=== PATIENT | female | born 1990 | race Caucasian/White ===

== ENCOUNTER 2016-10-23 21:03 | Emergency (ER) | payer BC, OTHER ==
[2016-10-23 21:11] VITALS: BP 130/70; PULSE 98; RESP 20; TEMP 99.3
[2016-10-23] MEDS ORDERED: ACETAMINOPHEN TAB 500 MG TAB PO STA (21:17)
[2016-10-23] MEDS ORDERED: KETOROLAC 30 MG/ML 1 ML VIAL IM STA (21:30)
[2016-10-23] MEDS ORDERED: ONDANSETRON 4 MG ODT STARTER PACK 2 TAB BTL PO STA (21:31)
--- NOTE | 2016-10-23 21:46 | ED ---
Headache HPI - General Chief Complaint: Headache Stated Complaint: Headache Time Seen by Provider: 10/23/16 21:16 Source: RN notes reviewed Mode of arrival: ambulatory Limitations: no limitations - History of Present Illness Initial Comments: Patient is a 26-year-old female with chief complaint of sore throat and sinus pressure and congestion for approximately 3 days. She also states that on she had a migraine headache that is continue to persist. Patient states that she's been taking Motrin but denies taking any medication in the past 24 hours for headache. Patient states that she did have a slight cough but denies any mucus production. Patient reports that her headache is currently a 4 out of 10. Patient denies any recent , chills, shortness of breath , chest pain, back pain, abdominal pain, nausea vomiting, numbness or tingling, dysuria or hematuria, constipation or diarrhea, headaches or visual changes, or any other current symptoms. - Related Data Previous Rx's Medication Instructions Recorded Azithromycin [Zithromax Z-pack] 250 mg PO DIRECTED #6 tab 10/23/16 Butalb/Acetaminophen/Caffeine 1 - 2 cap PO Q4HR #10 cap 10/23/16 [Fioricet 50-300-40 mg Capsule] Allergies Allergy/AdvReac Type Severity Reaction Status Date / Time Penicillins Allergy Rash/Hives Verified 10/23/16 21:11 Review of Systems ROS Statement: Those systems with pertinent positive or pertinent negative responses have been documented in the HPI. ROS Other: All systems not noted in ROS Statement are negative. Past Medical History Additional Past Medical History / Comment(s): diverticulitis History of Any Multi-Drug Resistant Organisms: None Reported, MRSA Date of last positivie culture/infection: 2009 MDRO Source:: lower left leg Past Surgical History: Appendectomy, Cholecystectomy Past Psychological History: No Psychological Hx Reported Smoking Status: Never smoker Past Alcohol Use History: Occasional Past Drug Use History: None Reported General Exam - General Exam Comments Initial Comments: Pleasant 26-year-old female. No acute distress. Limitations: no limitations General appearance: alert, in no apparent distress Head exam: Present: atraumatic, normocephalic, normal inspection Eye exam: Present: normal appearance, PERRL, EOMI. Absent: scleral icterus, conjunctival injection, periorbital swelling ENT exam: Present: normal exam, normal oropharynx, mucous membranes moist. Absent: TM's normal bilaterally Neck exam: Present: normal inspection, tenderness (Tender anterior cervical lymphadenopathy.). Absent: meningismus, lymphadenopathy Respiratory exam: Present: normal lung sounds bilaterally. Absent: respiratory distress, wheezes, rales, rhonchi, stridor Cardiovascular Exam: Present: regular rate, normal rhythm, normal heart sounds. Absent: systolic murmur, diastolic murmur, rubs, gallop, clicks GI/Abdominal exam: Present: soft, normal bowel sounds. Absent: distended, tenderness, guarding, rebound, rigid Extremities exam: Present: normal inspection, full ROM, normal capillary refill. Absent: tenderness, pedal edema, joint swelling, calf tenderness Back exam: Present: normal inspection Neurological exam: Present: alert, oriented X3, CN II-XII intact Psychiatric exam: Present: normal affect, normal mood Skin exam: Present: warm, dry, intact, normal color. Absent: rash Course Vital Signs 10/23/16 21:09 Temperature 99.3 F Pulse Rate 98 Respiratory 20 Rate Blood Pressure 130/70 O2 Sat by Pulse 99 Oximetry Medical Decision Making - Medical Decision Making Patient is a 26-year-old female with chief complaint of sore throat and sinus pressure and congestion for approximately 3 days. She also states that on she had a migraine headache that is continue to persist. Patient states that she's been taking Motrin but denies taking any medication in the past 24 hours for headache. Patient states that she did have a slight cough but denies any mucus production. Patient reports that her headache is currently a 4 out of 10. Patient refuses an IV at this time. I discussed we can do IM Toradol and nausea medication. Patient agrees to that. Influenza and rapid strep are negative. Patient does have significant anterior cervical adenopathy and erythematous oropharynx. I will treat the patient with azithromycin at this time for tonsillitis.. I discussed that she needs to follow-up with primary care provider. Patient reports that her headache is diminished at this time. No red the patient a short prescription for Fioricet if she does have further headaches. Return parameters were discussed. - Lab Data Lab Results 10/23/16 10/23/16 Range/Units 21:30 21:30 Influenza Type A RNA Not Detected (Not Detectd) Influenza Type B (PCR) Not Detected (Not Detectd) Group A Strep Rapid Negative (Negative) Disposition Clinical Impression: Sinusitis, Migraine, Acute infective tonsillitis Disposition: HOME SELF-CARE Condition: Good Instructions: Acute Headache (ED) Additional Instructions: Follow-up with primary care provider in the next 2-3 days of symptoms continue to persist. Completely anabiotic prescription. Return to emergency department if any alarming signs or symptoms occur. Prescriptions: Azithromycin [Zithromax Z-pack] 250 mg PO DIRECTED #6 tab Butalb/Acetaminophen/Caffeine [Fioricet 50-300-40 mg Capsule] 1 - 2 cap PO Q4HR #10 cap Referrals: Sabina Murray MD [Primary Care Provider] - 1-2 days Time of Disposition: 22:43
== END 2016-10-23 22:50 | disposition home or self-care (01) ==
LOC: EC 21:03
DX: J32.9 Chronic sinusitis, unspecified (principal); G43.909 Migraine, unspecified, not intractable, without status migrainosus; J03.90 Acute tonsillitis, unspecified; Z88.0 Allergy status to penicillin
CPT/HCPCS: 99284; 96372; 87081; 87430; 87502; J1885; S0119

== ENCOUNTER 2017-03-06 16:19 | Emergency (ER) | payer OTHER, BC ==
[2017-03-06 16:38] VITALS: RESP 20
--- NOTE | 2017-03-06 16:54 | ED ---
Back Pain HPI - General Chief Complaint: Back Pain/Injury Stated Complaint: Back Pain Time Seen by Provider: 03/06/17 16:46 Source: patient Limitations: no limitations - History of Present Illness Initial Comments: 26-year-old female presents with low back pain that occurred earlier today. Patient states she was just twisting when her leg give out and she fell. Patient having extreme pain in her low back that slightly more to the right and radiating down both legs. Patient states she can't straighten up all the way. Patient states she can hardly ambulate. Patient denies any bowel bladder incontinence or saddle numbness. MD Complaint: back pain, fall - Related Data Previous Rx's Medication Instructions Recorded Azithromycin [Zithromax Z-pack] 250 mg PO DIRECTED #6 tab 10/23/16 Butalb/Acetaminophen/Caffeine 1 - 2 cap PO Q4HR #10 cap 10/23/16 [Fioricet 50-300-40 mg Capsule] Cyclobenzaprine [Flexeril] 10 mg PO TID #20 tab 03/06/17 Hydrocodone/Acetaminophen [[place]ion 1 tab PO Q4HR PRN #12 tab 03/06/17 5-325] methylPREDNISolone Dose Pack 4 mg PO DIRECTED #21 package 03/06/17 [Medrol Dose Pack] Allergies Allergy/AdvReac Type Severity Reaction Status Date / Time Penicillins Allergy Rash/Hives Verified 03/06/17 16:38 Review of Systems ROS Statement: Those systems with pertinent positive or pertinent negative responses have been documented in the HPI. ROS Other: All systems not noted in ROS Statement are negative. Endocrine: Denies: fatigue Gastrointestinal: Denies: abdominal pain Musculoskeletal: Reports: back pain Skin: Denies: rash Past Medical History Additional Past Medical History / Comment(s): diverticulitis History of Any Multi-Drug Resistant Organisms: MRSA Date of last positivie culture/infection: 2009 MDRO Source:: lower left leg Past Surgical History: Appendectomy, Cholecystectomy Past Psychological History: No Psychological Hx Reported Smoking Status: Never smoker Past Alcohol Use History: Occasional Past Drug Use History: None Reported General Exam Limitations: no limitations General appearance: alert, in no apparent distress, in distress Head exam: Present: atraumatic, normocephalic, normal inspection Neck exam: Present: normal inspection. Absent: tenderness, meningismus, lymphadenopathy Respiratory exam: Present: normal lung sounds bilaterally. Absent: respiratory distress, wheezes, rales, rhonchi, stridor Cardiovascular Exam: Present: regular rate, normal rhythm, normal heart sounds. Absent: systolic murmur, diastolic murmur, rubs, gallop, clicks Back exam: Present: normal inspection, tenderness (Bilateral lower back tenderness no deformity swelling or bruising), muscle spasm, paraspinal tenderness, vertebral tenderness. Absent: full ROM (Her limited range of motion and exam due to patient's pain level she could not lay on the bed presents in a flexion position) Course Vital Signs 03/06/17 16:36 Temperature 98.4 F Pulse Rate 100 Respiratory 20 Rate Blood Pressure 124/60 O2 Sat by Pulse 99 Oximetry Medical Decision Making - Medical Decision Making Reviewed x-ray negative for any acute changes positive straightening of the lumbar spine hobble due to muscle spasm patient aware. Disposition Clinical Impression: Strain of lumbar region Disposition: HOME SELF-CARE Condition: Good Instructions: Acute Low Back Pain (ED) Prescriptions: Hydrocodone/Acetaminophen [Champion 5-325] 1 tab PO Q4HR PRN #12 tab PRN Reason: Pain Cyclobenzaprine [Flexeril] 10 mg PO TID #20 tab methylPREDNISolone Dose Pack [Medrol Dose Pack] 4 mg PO DIRECTED #21 package Referrals: Sabina Murray MD [Primary Care Provider] - 1-2 days Time of Disposition: 17:47
[2017-03-06] MEDS ORDERED: methylPREDNISolone SOD SUCCI 125 MG/2 ML VIAL IM ONE (17:41)
[2017-03-06] MEDS ORDERED: ORPHENADRINE 30 MG/ML 2 ML VIAL IM STA (17:41)
[2017-03-06 17:58] VITALS: BP 122/68; PULSE 97; TEMP 98
--- NOTE | 2017-03-06 17:58 | XR ---
EXAMINATION TYPE: XR lumbar spine 2 or 3V DATE OF EXAM: 03/06/2017 COMPARISON: NONE HISTORY: Injury and pain TECHNIQUE: 3 views FINDINGS: Lumbar vertebra have normal alignment. Posterior elements are intact. Sacroiliac joints andrew ear normal. IMPRESSION: Negative lumbar spine exam.
== END 2017-03-06 17:57 | disposition home or self-care (01) ==
LOC: EC 16:19
DX: S39.012A Strain of muscle, fascia and tendon of lower back, initial encounter (principal); Z88.0 Allergy status to penicillin; X50.1XXA Overexertion from prolonged static or awkward postures, initial encounter
CPT/HCPCS: 72100; 99283; 96372 ×2; J2360; J2930

== ENCOUNTER 2018-01-21 14:45 | Emergency (ER) | payer BC ==
[2018-01-21 15:34] VITALS: RESP 16
--- NOTE | 2018-01-21 16:32 | ED ---
General Adult HPI - General Chief complaint: Nausea/Vomiting/Diarrhea Stated complaint: N & V Time Seen by Provider: 01/21/18 16:10 Source: patient Mode of arrival: ambulatory Limitations: no limitations - History of Present Illness Initial comments: 77 years old female had I&D done at her doctor's office on Tuesday she was started on a Bactrim she had a Bactrim for last 4 days is causing her excruciating nausea and vomiting she said this is the worst nausea she ever had she denies any abdominal pain no fever no chills no frequency urgency dysuria. Past medical history is quite unremarkable past surgical history is significant for being status post cholecystectomy and appendectomy. She had I&D done for a localized infection she said that's better - Related Data Previous Rx's Medication Instructions Recorded Butalb/Acetaminophen/Caffeine 1 - 2 cap PO Q4HR #10 cap 10/23/16 [Fioricet 50-300-40 mg Capsule] Cyclobenzaprine [Flexeril] 10 mg PO TID #20 tab 03/06/17 Hydrocodone/Acetaminophen [[place] 1 tab PO Q4HR PRN #12 tab 03/06/17 5-325] methylPREDNISolone Dose Pack 4 mg PO DIRECTED #21 package 03/06/17 [Medrol Dose Pack] Clindamycin [Cleocin] 300 mg PO Q6H #28 capsule 01/21/18 Metoclopramide [Reglan] 10 mg PO Q8H PRN #12 tab 01/21/18 Allergies Allergy/AdvReac Type Severity Reaction Status Date / Time Penicillins Allergy Rash/Hives Verified 01/21/18 15:34 Review of Systems ROS Statement: Those systems with pertinent positive or pertinent negative responses have been documented in the HPI. ROS Other: All systems not noted in ROS Statement are negative. Past Medical History Past Medical History: No Reported History Additional Past Medical History / Comment(s): diverticulitis History of Any Multi-Drug Resistant Organisms: MRSA Date of last positivie culture/infection: 2009 MDRO Source:: lower left leg Past Surgical History: Appendectomy, Cholecystectomy Past Psychological History: No Psychological Hx Reported Smoking Status: Never smoker Past Alcohol Use History: Occasional Past Drug Use History: None Reported General Exam - General Exam Comments Initial Comments: General: The patient is awake and alert, in no distress, and does not appear acutely ill. Skin: Skin is warm and dry and no rashes or lesions are noted. Eye: Pupils are equal, round and reactive to light, extra-ocular movements are intact; there is normal conjunctiva bilaterally. Ears, nose, mouth and throat: There are moist mucous membranes and no oral lesions. Neck: The neck is supple, there is no tenderness or JVD. Cardiovascular: There is a regular rate and rhythm. No murmur, rub or gallop is appreciated. Respiratory: To auscultation bilateral, no wheezing no rhonchi no distress respiratory ashton noticed Gastrointestinal: Soft, non-distended, non-tender abdomen without masses or organomegaly noted. There is no rebound or guarding present. Bowel sounds are unremarkable. Back: There is no tenderness to palpation in the midline. There is no obvious deformity. Musculoskeletal: Normal ROM, no tenderness, There is no pedal edema. There is no calf tenderness or swelling. No cords were appreciated. Neurological: CN II-XII intact, Cranial nerves III through XII are intact. There are no obvious motor or sensory deficits. Coordination appears grossly intact. Speech is normal. Psychiatric: Cooperative, appropriate mood & affect, normal judgment. Limitations: no limitations Course Vital Signs 01/21/18 15:27 Temperature 98.5 F Pulse Rate 75 Respiratory 16 Rate Blood Pressure 125/77 O2 Sat by Pulse 100 Oximetry Disposition Clinical Impression: Drug-induced nausea and vomiting Disposition: HOME SELF-CARE Condition: Good Instructions: Acute Nausea and Vomiting (ED) Additional Instructions: Patient was advised to stay in touch with family doctor we might need to change the antibiotic based on the culture and sensitivity I don't have any report on the culture and sensitivity on in our system since this was done in her doctor' s office Prescriptions: Clindamycin [Cleocin] 300 mg PO Q6H #28 capsule Metoclopramide [Reglan] 10 mg PO Q8H PRN #12 tab PRN Reason: Nausea Is patient prescribed a controlled substance at d/c from ED?: No Referrals: Sabina Murray MD [Primary Care Provider] - 1-2 days
[2018-01-21] MEDS ORDERED: ONDANSETRON ODT 4 MG TAB PO STA (16:53)
[2018-01-21] MEDS ORDERED: METOCLOPRAMIDE 5 MG/ML 2 ML VIAL IM PRN (18:00)
[2018-01-21] MEDS ORDERED: SODIUM CHLORIDE 0.9% 1,000 ML IV STA (18:04)
[2018-01-21] MEDS ORDERED: ONDANSETRON 4 MG/2 ML VIAL IVP STA (18:04)
[2018-01-21] MEDS ORDERED: FAMOTIDINE 20 MG/2 ML VIAL IV STA (18:06)
[2018-01-21] MEDS ORDERED: MORPHINE SULFATE 2 MG/ML SYRINGE IVP STA (18:06)
[2018-01-21 19:04] LABS: Basophils % (A) 0 %; Eosinophils # (A) 0.1 k/uL (0-0.7); Eosinophils % (A) 1 %; HCT 41.9 % (34.0-46.0); HGB 14.1 gm/dL (11.4-16.0); Lymphocytes # (A) 2.3 k/uL (1.0-4.8); Lymphocytes % (A) 26 %; MCH 28.4 pg (25.0-35.0); MCHC 33.7 g/dL (31.0-37.0); MCV 84.4 fL (80.0-100.0); Monocytes # (A) 0.4 k/uL (0-1.0); Monocytes % (A) 4 %; Neutrophils # (A) 6.1 k/uL (1.3-7.7); Neutrophils % (A) 68 %; Platelet Count 172 k/uL (150-450); RBC 4.97 m/uL (3.80-5.40); RDW 13.7 % (11.5-15.5); WBC 9.1 k/uL (3.8-10.6)
[2018-01-21 19:05] LABS: Appearance,Urine Clear (Clear); Bilirubin,Urine Negative (Negative); Blood,Urine Negative (Negative); Color,Urine Light Yellow; Glucose,Urine (UA) Negative (Negative); Ketones,Urine Negative (Negative); Leukocyte Esterase,Urine Negative (Negative); Nitrite,Urine Negative (Negative); Protein,Urine Negative (Negative); Specific Gravity,Urine 1.009 (1.001-1.035); Urobilinogen,Urine <2.0 mg/dL (<2.0)
[2018-01-21 19:19] VITALS: BP 120/64; PULSE 67; TEMP 98.1
[2018-01-21 19:21] LABS: ALT 48 U/L (9-52); AST 36 U/L (14-36); Albumin 4.1 g/dL (3.5-5.0); Alkaline Phosphatase 89 U/L (38-126); Amylase 58 U/L (30-110); Anion Gap 12 mmol/L; Blood Urea Nitrogen 8 mg/dL (7-17); Calcium 9.6 mg/dL (8.4-10.2); Carbon Dioxide 22 mmol/L (22-30); Chloride 104 mmol/L (98-107); Glucose 90 mg/dL (74-99); Lipase 64 U/L (23-300); Potassium 4.5 mmol/L (3.5-5.1); Sodium 138 mmol/L (137-145); Total Bilirubin 0.2 mg/dL (0.2-1.3); Total Protein 6.9 g/dL (6.3-8.2)
== END 2018-01-21 19:45 | disposition home or self-care (01) ==
LOC: EC 14:45
DX: R11.2 Nausea with vomiting, unspecified (principal); T37.0X5A Adverse effect of sulfonamides, initial encounter; Z87.19 Personal history of other diseases of the digestive system; Z86.14 Personal history of Methicillin resistant Staphylococcus aureus infection; Z90.49 Acquired absence of other specified parts of digestive tract; Z88.0 Allergy status to penicillin
CPT/HCPCS: 36415; 80053; 82150; 83690; 85025; 81003; 81025; 99284; 96374; 96375; 96361; J2765

== ENCOUNTER 2020-05-26 07:39 | Inpatient (IN) | payer BC ==
[2020-05-26] MEDS ORDERED: ACETAMINOPHEN TAB 500 MG TAB PO PRN (08:13)
[2020-05-26] MEDS ORDERED: ALBUTEROL HFA INHALER INHALATION STA (08:13)
[2020-05-26] MEDS ORDERED: ACETAMINOPHEN TAB 500 MG TAB PO STA (08:13)
--- NOTE | 2020-05-26 08:16 | ED ---
General Adult HPI - General Chief complaint: Shortness of Breath Stated complaint: +COVID, cough, fever, SOB Time Seen by Provider: 05/26/20 07:46 Source: patient, RN notes reviewed Mode of arrival: ambulatory Limitations: no limitations - History of Present Illness Initial comments: Patient is a pleasant 30-year-old female presenting to the emergency Department with complaints of symptoms of Crohn of virus. Patient states she started with nasal congestion close to 10 days ago. Patient was tested +6 days ago. Patient now has fevers, fatigue, chills and myalgias, cough with white sputum. Patient still has some nasal congestion and rhinorrhea. Patient doeshave some dyspnea. Patient has diarrhea a couple times per day. No abdominal pain. No nausea vomiting. Patient has not taken Tylenol or Motrin yesterday. No history of significant past medical history or lung problems. - Related Data Home Medications Medication Instructions Recorded Confirmed Azithromycin [Zithromax Z-pack (6 See Taper PO DIRECTED 05/26/20 05/26/20 tabs)] guaiFENesin [Mucinex] 600 mg PO BID PRN 05/26/20 05/26/20 Allergies Allergy/AdvReac Type Severity Reaction Status Date / Time Penicillins Allergy Rash/Hives Verified 05/26/20 08:56 Review of Systems ROS Statement: Those systems with pertinent positive or pertinent negative responses have been documented in the HPI. ROS Other: All systems not noted in ROS Statement are negative. Constitutional: Reports: fever, chills Eyes: Denies: eye pain ENT: Denies: ear pain Respiratory: Reports: cough, dyspnea Cardiovascular: Denies: chest pain Endocrine: Reports: fatigue Gastrointestinal: Reports: diarrhea. Denies: abdominal pain, nausea, vomiting Genitourinary: Denies: dysuria Musculoskeletal: Denies: back pain Skin: Denies: rash Neurological: Denies: weakness Past Medical History Past Medical History: No Reported History Additional Past Medical History / Comment(s): diverticulitis History of Any Multi-Drug Resistant Organisms: MRSA Date of last positivie culture/infection: 2009 MDRO Source:: lower left leg Past Surgical History: Appendectomy, Cholecystectomy Past Psychological History: No Psychological Hx Reported Smoking Status: Never smoker Past Alcohol Use History: Occasional Past Drug Use History: None Reported General Exam Limitations: no limitations General appearance: alert, in no apparent distress Head exam: Present: normocephalic Eye exam: Present: normal appearance Neck exam: Present: normal inspection Respiratory exam: Present: normal lung sounds bilaterally Cardiovascular Exam: Present: tachycardia GI/Abdominal exam: Present: soft. Absent: tenderness Extremities exam: Present: normal inspection Neurological exam: Present: alert Psychiatric exam: Present: normal affect, normal mood Skin exam: Present: normal color Course Vital Signs 05/26/20 05/26/20 05/26/20 07:42 08:40 09:00 Temperature 101.1 F H Pulse Rate 107 H 115 H 97 Respiratory 16 20 20 Rate Blood Pressure 126/75 115/86 115/86 O2 Sat by Pulse 93 L 93 L 94 L Oximetry 05/26/20 05/26/20 05/26/20 09:20 09:30 09:40 Temperature Pulse Rate 83 89 89 Respiratory 20 39 H 20 Rate Blood Pressure 115/59 115/59 112/63 O2 Sat by Pulse 92 L 92 L 91 L Oximetry 05/26/20 05/26/20 05/26/20 09:48 09:50 10:00 Temperature 100.2 F H Pulse Rate 102 H 105 H 95 Respiratory 21 18 22 Rate Blood Pressure 110/66 110/66 110/66 O2 Sat by Pulse 93 L 92 L 91 L Oximetry 05/26/20 05/26/20 05/26/20 10:10 10:20 10:30 Temperature Pulse Rate 96 91 97 Respiratory 18 20 22 Rate Blood Pressure 113/68 113/68 113/68 O2 Sat by Pulse 91 L 90 L 93 L Oximetry 05/26/20 10:35 Temperature 99.8 F H Pulse Rate Respiratory Rate Blood Pressure O2 Sat by Pulse Oximetry EKG Findings - EKG Comments: EKG Findings:: Sinus tachycardia 119. OH 128. QRS 72. QT 296. QTc 416. Normal axis. Normal QRS. Inferior T wave inversion. Medical Decision Making - Medical Decision Making patient still has oxygen saturation 9093% on room air. Oxygen added. Patient reevaluated and updated. Case was discussed with Dr. Price, covering with Dr. Mendez, who will admit. - Lab Data Result diagrams: 05/26/20 08:30 05/26/20 08:30 Lab Results 05/26/20 05/26/20 05/26/20 Range/Units 08:30 08:30 08:30 WBC 4.6 (3.8-10.6) k/uL RBC 5.04 (3.80-5.40) m/uL Hgb 14.0 (11.4-16.0) gm/dL Hct 42.3 (34.0-46.0) % MCV 84.0 (80.0-100.0) fL MCH 27.8 (25.0-35.0) pg MCHC 33.0 (31.0-37.0) g/dL RDW 13.6 (11.5-15.5) % Plt Count 127 L (150-450) k/uL Neutrophils % 76 % Lymphocytes % 17 % Monocytes % 4 % Eosinophils % 0 % Basophils % 1 % Neutrophils # 3.5 (1.3-7.7) k/uL Lymphocytes # 0.8 L (1.0-4.8) k/uL Monocytes # 0.2 (0-1.0) k/uL Eosinophils # 0.0 (0-0.7) k/uL Basophils # 0.0 (0-0.2) k/uL PT 9.5 (9.0-12.0) sec INR 0.9 (<1.2) APTT 22.9 (22.0-30.0) sec Sodium 140 (137-145) mmol/L Potassium 3.7 (3.5-5.1) mmol/L Chloride 102 (98-107) mmol/L Carbon Dioxide 31 H (22-30) mmol/L Anion Gap 7 mmol/L BUN 12 (7-17) mg/dL Creatinine 0.80 (0.52-1.04) mg/dL Est GFR (CKD-EPI)AfAm >90 (>60 ml/min/1.73 sqM) Est GFR (CKD-EPI)NonAf >90 (>60 ml/min/1.73 sqM) Glucose 94 (74-99) mg/dL Plasma Lactic Acid Charles (0.7-2.0) mmol/L Calcium 9.2 (8.4-10.2) mg/dL Magnesium 2.4 H (1.6-2.3) mg/dL Total Bilirubin 0.5 (0.2-1.3) mg/dL AST 70 H (14-36) U/L ALT 49 H (4-34) U/L Alkaline Phosphatase 78 (38-126) U/L Lactate Dehydrogenase 1331 H (313-618) U/L C-Reactive Protein 34.1 H (<10.0) mg/L Total Protein 7.8 (6.3-8.2) g/dL Albumin 4.2 (3.5-5.0) g/dL 05/26/20 Range/Units 08:30 WBC (3.8-10.6) k/uL RBC (3.80-5.40) m/uL Hgb (11.4-16.0) gm/dL Hct (34.0-46.0) % MCV (80.0-100.0) fL MCH (25.0-35.0) pg MCHC (31.0-37.0) g/dL RDW (11.5-15.5) % Plt Count (150-450) k/uL Neutrophils % % Lymphocytes % % Monocytes % % Eosinophils % % Basophils % % Neutrophils # (1.3-7.7) k/uL Lymphocytes # (1.0-4.8) k/uL Monocytes # (0-1.0) k/uL Eosinophils # (0-0.7) k/uL Basophils # (0-0.2) k/uL PT (9.0-12.0) sec INR (<1.2) APTT (22.0-30.0) sec Sodium (137-145) mmol/L Potassium (3.5-5.1) mmol/L Chloride (98-107) mmol/L Carbon Dioxide (22-30) mmol/L Anion Gap mmol/L BUN (7-17) mg/dL Creatinine (0.52-1.04) mg/dL Est GFR (CKD-EPI)AfAm (>60 ml/min/1.73 sqM) Est GFR (CKD-EPI)NonAf (>60 ml/min/1.73 sqM) Glucose (74-99) mg/dL Plasma Lactic Acid Charles 1.2 (0.7-2.0) mmol/L Calcium (8.4-10.2) mg/dL Magnesium (1.6-2.3) mg/dL Total Bilirubin (0.2-1.3) mg/dL AST (14-36) U/L ALT (4-34) U/L Alkaline Phosphatase (38-126) U/L Lactate Dehydrogenase (313-618) U/L C-Reactive Protein (<10.0) mg/L Total Protein (6.3-8.2) g/dL Albumin (3.5-5.0) g/dL - Radiology Data Radiology results: image reviewed (Chest x-ray shows findings consistent with interstitial pneumonia including atypical pneumonias such as Covid) Disposition Clinical Impression: Pneumonia due to COVID-19 virus Disposition: ADMITTED IP TO THIS HOSP Is patient prescribed a controlled substance at d/c from ED?: No Referrals: Nia Mendez DO [Primary Care Provider] - 1-2 days Decision Time: 10:41
[2020-05-26 08:52] LABS: Basophils % (A) 1 %; Eosinophils % (A) 0 %; HCT 42.3 % (34.0-46.0); Lymphocytes # (A) 0.8 k/uL (1.0-4.8); Lymphocytes % (A) 17 %; MCH 27.8 pg (25.0-35.0); Mean Platelet Volume 10.9; Monocytes # (A) 0.2 k/uL (0-1.0); Monocytes % (A) 4 %; Neutrophils # (A) 3.5 k/uL (1.3-7.7); Neutrophils % (A) 76 %; Platelet Count 127 k/uL (150-450); RBC 5.04 m/uL (3.80-5.40); RDW 13.6 % (11.5-15.5); WBC 4.6 k/uL (3.8-10.6)
--- NOTE | 2020-05-26 08:55 | XR ---
EXAMINATION TYPE: XR chest 1V portable DATE OF EXAM: 05/26/2020 Comparison: 07/31/2013 Clinical History: 30-year-old female with cough and difficulty breathing, Suspected COVID-19 pneumoni a Findings: Heart upper limits of normal in size. Patchy opacity left mid lung and mild interstitial changes in t he periphery and lower aspect of both lungs. Impression: Patchy peripheral interstitial changes along with confluent infiltrate at the left midlung. Pneumonia including atypical pneumonias such as COVID pneumonia are considered.
[2020-05-26 09:00] LABS: INR 0.9 (<1.2); Partial Thromboplastin Time 22.9 sec (22.0-30.0); Prothrombin Time 9.5 sec (9.0-12.0)
[2020-05-26 09:04] LABS: ALT 49 U/L (4-34); AST 70 U/L (14-36); African American GFR (CKD) >90 (>60 ml/min/1.73 sqM); Albumin 4.2 g/dL (3.5-5.0); Alkaline Phosphatase 78 U/L (38-126); Anion Gap 7 mmol/L; Blood Urea Nitrogen 12 mg/dL (7-17); Calcium 9.2 mg/dL (8.4-10.2); Carbon Dioxide 31 mmol/L (22-30); Chloride 102 mmol/L (98-107); Glucose 94 mg/dL (74-99); LDH 1331 U/L (313-618); Magnesium 2.4 mg/dL (1.6-2.3); Non-African American GFR(CKD) >90 (>60 ml/min/1.73 sqM); Potassium 3.7 mmol/L (3.5-5.1); Sodium 140 mmol/L (137-145); Total Bilirubin 0.5 mg/dL (0.2-1.3); Total Protein 7.8 g/dL (6.3-8.2)
[2020-05-26 09:41] LABS: C Reactive Protein 34.1 mg/L (<10.0)
[2020-05-26] MEDS ORDERED: IBUPROFEN 400 MG TAB PO PRN (10:42)
[2020-05-26] MEDS ORDERED: NALOXONE 0.4 MG/ML 1 ML VIAL IV PRN (10:42)
[2020-05-26] MEDS: SODIUM CHLORIDE 0.9% 1,000 ML IV SCH (11:02)
[2020-05-26] MEDS: ALBUTEROL HFA INHALER INHALATION PRN ×2 (13:33→20:04)
--- NOTE | 2020-05-26 15:17 | P.HPIM ---
History of Present Illness 30-year-old female presenting to the emergency Department with complaints of symptoms of Crohn of virus. Patient states she started with nasal congestion close to 10 days ago. Patient was tested a week ago. Patient now has fevers, fatigue, chills and myalgias, cough with white sputum. Patient still has some nasal congestion and rhinorrhea. Patient doeshave some dyspnea. Patient has diarrhea a couple times per day. No abdominal pain. No nausea vomiting. Patient has not taken Tylenol or Motrin yesterday. No history of significant past medical history or lung problems. Patient still having body aches still doesn't feel good. Patient has been in mother never diagnosed with the Covid 19 as well as but is isolating himself and [id number]-[id number] is in the hospital now. Liver is being obtained patient does have elevated inflammatory markers, that his LDH, CRP, d-dimer was ordered. Review of Systems REVIEW OF SYSTEMS: CONSTITUTIONAL: As mentioned in HPI HEENT: No recent visual problems or hearing problems. Denied any sore throat. CARDIOVASCULAR: No chest pain, orthopnea, PND, no palpitations, no syncope. PULMONARY: no hemoptysis. GASTROINTESTINAL: No diarrhea, no nausea, no vomiting, no abdominal pain. NEUROLOGICAL: No headaches, no weakness, no numbness. HEMATOLOGICAL: Denies any bleeding or petechiae. GENITOURINARY: Denies any burning micturition, frequency, or urgency. MUSCULOSKELETAL/RHEUMATOLOGICAL: Denies any joint pain, swelling, or any muscle pain. ENDOCRINE: Denies any polyuria or polydipsia. The rest of the 14-point review of systems is negative. Past Medical History Past Medical History: No Reported History Additional Past Medical History / Comment(s): diverticulitis, UTI, nephrolithia sis-pt passed on her own. History of Any Multi-Drug Resistant Organisms: MRSA Date of last positivie culture/infection: 2009 MDRO Source:: lower left leg Past Surgical History: Appendectomy, Cholecystectomy Past Anesthesia/Blood Transfusion Reactions: No Reported Reaction, Motion Sickness Past Psychological History: No Psychological Hx Reported Additional Psychological History / Comment(s): Pt resides with her spouse and 1 year old child Smoking Status: Never smoker Past Alcohol Use History: Occasional Past Drug Use History: None Reported - Past Family History Father Family Medical History: Diabetes Mellitus Mother Family Medical History: Hypertension Medications and Allergies Home Medications Medication Instructions Recorded Confirmed Type Azithromycin [Zithromax Z-pack (6 See Taper PO DIRECTED 05/26/20 05/26/20 History tabs)] guaiFENesin [Mucinex] 600 mg PO BID PRN 05/26/20 05/26/20 History Allergies Allergy/AdvReac Type Severity Reaction Status Date / Time Penicillins Allergy Rash/Hives Verified 05/26/20 08:56 Physical Exam Vitals: Vital Signs Temp Pulse Resp BP Pulse Ox 05/26/20 11:00 90 20 107/68 97 05/26/20 10:35 99.8 F H 05/26/20 10:30 97 22 113/68 93 L 05/26/20 10:20 91 20 113/68 90 L 05/26/20 10:10 96 18 113/68 91 L 05/26/20 10:00 95 22 110/66 91 L 05/26/20 09:50 105 H 18 110/66 92 L 05/26/20 09:48 100.2 F H 102 H 21 110/66 93 L 05/26/20 09:40 89 20 112/63 91 L 05/26/20 09:30 89 20 115/59 92 L 05/26/20 09:20 83 20 115/59 92 L 05/26/20 09:00 97 20 115/86 94 L 05/26/20 08:40 115 H 20 115/86 93 L 05/26/20 07:42 101.1 F H 107 H 16 126/75 93 L Intake and Output 05/26/20 05/26/20 05/26/20 06:59 14:59 22:59 Other: Weight 122.47 kg PHYSICAL EXAMINATION: GENERAL: The patient is alert and oriented x3, not in any acute distress. Well developed, well nourished. HEENT: Pupils are round and equally reacting to light. EOMI. No scleral icterus. No conjunctival pallor. Normocephalic, atraumatic. No pharyngeal erythema. No thyromegaly. CARDIOVASCULAR: S1 and S2 present. No murmurs, rubs, or gallops. PULMONARY: Chest is clear to auscultation, no wheezing or crackles. ABDOMEN: Soft, nontender, nondistended, normoactive bowel sounds. No palpable organomegaly. MUSCULOSKELETAL: No joint swelling or deformity. EXTREMITIES: No cyanosis, clubbing, or pedal edema. NEUROLOGICAL: Gross neurological examination did not reveal any focal deficits. SKIN: No rashes. Results CBC & Chem 7: 05/26/20 08:30 05/26/20 08:30 Labs: Abnormal Lab Results - Last 24 Hours (Table) 05/26/20 05/26/20 Range/Units 08:30 08:30 Plt Count 127 L (150-450) k/uL Lymphocytes # 0.8 L (1.0-4.8) k/uL Carbon Dioxide 31 H (22-30) mmol/L Magnesium 2.4 H (1.6-2.3) mg/dL AST 70 H (14-36) U/L ALT 49 H (4-34) U/L Lactate Dehydrogenase 1331 H (313-618) U/L C-Reactive Protein 34.1 H (<10.0) mg/L Thrombosis Risk Factor Assmnt - Choose All That Apply Any of the Below Risk Factors Present?: Yes Each Factor Represents 1 point: Obesity (BMI >25), Serious lung disease incl. pneumonia (< 1month) Other Risk Factors: No Other congenital or acquired thrombophilia - If yes, enter type in comment: No Thrombosis Risk Factor Assessment Total Risk Factor Score: 2 Thrombosis Risk Factor Assessment Level: Low Risk Assessment and Plan Plan: -Covid 19 pneumonitis: Patient will be started on Decadron symptomatically treatment for cough supportive care patient is presently on 2 L of oxygen. We'll obtain a d-dimer patient does have elevated LDH mildly elevated liver enzymes. -Mild transaminitis nonspecific elevation no further intervention at this time can be related to Covid 19 sepsis -Mild thrombocytopenia secondary to sepsis from Covid 19 -DVT prophylaxis: With Lovenox GI prophylaxis Pepcid
--- NOTE | 2020-05-26 16:30 | P.CNPUL ---
History of Present Illness Consult date: 05/26/20 Requesting physician: Nia Mendez Reason for consult: dyspnea, abnormal CXR/CT, other Chief complaint: Fever, fatigue, chills, cough, dyspnea History of present illness: 30-year-old female patient of Dr. Mendez with past medical history of diverticulitis, previous urinary tract infection with nephrolithiasis, who presented to the hospital on 05/26/2020 with complaints of fever, fatigue, ch ills, myalgia, cough, some white sputum production and dyspnea. 10 days ago patient had onset of nasal congestion, and she still continues to have nasal congestion and rhinorrhea. Patient reports diarrhea, couple times a day. No nausea or vomiting, no abdominal pain. No history of chronic lung disease, patient is a nonsmoker, no significant past medical history. Chest x-ray showed patchy peripheral interstitial changes with confluent infiltrate that the left mid lung. Patient is febrile on presentation with a temp of 101.1F. Her O2 saturation was 90-93 on room air, patient was placed on supplemental oxygen until recently pulse ox is 97%. Her lab work revealed lymphopenia with lympho cyte count of 0.8, CO2 is 31, the rest of the electrolytes and renal profile were unremarkable, plasma lactic acid was 1.2, AST was 70, ALT was 49, LDH was 1331, CRP was 34.1. Patient was tested for COVID 19 on an outpatient basis days ago. Patient was placed in droplet precautions. She was started on oral Decadron, Pepcid, Robitussin, she is receiving gentle IV hydration. Review of Systems All systems: negative Constitutional: Denies chills, Denies fever Eyes: denies blurred vision, denies pain Ears, nose, mouth and throat: Denies headache, Denies sore throat Cardiovascular: Denies chest pain, Denies shortness of breath Respiratory: Reports cough with sputum, Reports dyspnea, Denies cough Gastrointestinal: Reports diarrhea, Denies abdominal pain, Denies nausea, Denies vomiting Genitourinary: Denies dysuria, Denies hematuria Musculoskeletal: Denies myalgias Integumentary: Denies pruritus, Denies rash Neurological: Denies numbness, Denies weakness Psychiatric: Denies anxiety, Denies depression Endocrine: Denies fatigue, Denies weight change Past Medical History Past Medical History: No Reported History Additional Past Medical History / Comment(s): diverticulitis, UTI, nep hrolithiasis-pt passed on her own. History of Any Multi-Drug Resistant Organisms: MRSA Date of last positivie culture/infection: 2009 MDRO Source:: lower left leg Past Surgical History: Appendectomy, Cholecystectomy Past Anesthesia/Blood Transfusion Reactions: No Reported Reaction, Motion Sickness Past Psychological History: No Psychological Hx Reported Additional Psychological History / Comment(s): Pt resides with her spouse and 1 year old child Smoking Status: Never smoker Past Alcohol Use History: Occasional Past Drug Use History: None Reported - Past Family History Father Family Medical History: Diabetes Mellitus Mother Family Medical History: Hypertension Medications and Allergies Home Medications Medication Instructions Recorded Confirmed Type Azithromycin [Zithromax Z-pack (6 See Taper PO DIRECTED 05/26/20 05/26/20 History tabs)] guaiFENesin [Mucinex] 600 mg PO BID PRN 05/26/20 05/26/20 History Allergies Allergy/AdvReac Type Severity Reaction Status Date / Time Penicillins Allergy Rash/Hives Verified 05/26/20 08:56 Physical Exam Vitals: Vital Signs Temp Pulse Resp BP Pulse Ox 05/26/20 11:00 90 20 107/68 97 05/26/20 10:35 99.8 F H 05/26/20 10:30 97 22 113/68 93 L 05/26/20 10:20 91 20 113/68 90 L 05/26/20 10:10 96 18 113/68 91 L 05/26/20 10:00 95 22 110/66 91 L 05/26/20 09:50 105 H 18 110/66 92 L 05/26/20 09:48 100.2 F H 102 H 21 110/66 93 L 05/26/20 09:40 89 20 112/63 91 L 05/26/20 09:30 89 20 115/59 92 L 05/26/20 09:20 83 20 115/59 92 L 05/26/20 09:00 97 20 115/86 94 L 05/26/20 08:40 115 H 20 115/86 93 L 05/26/20 07:42 101.1 F H 107 H 16 126/75 93 L Intake and Output 05/26/20 05/26/20 05/26/20 06:59 14:59 22:59 Other: Weight 122.47 kg GENERAL EXAM: Alert, very pleasant, 30-year-old white female, 2 L of oxygen with pulse ox of 97% comfortable in no apparent distress. HEAD: Normocephalic/atraumatic. EYES: Normal reaction of pupils, equal size. Conjunctiva pink, sclera white. NOSE: Clear with pink turbinates. THROAT: No erythema or exudates. NECK: No masses, no JVD, no thyroid enlargement, no adenopathy. CHEST: No chest wall deformity. Symmetrical expansion. LUNGS: Equal air entry with no crackles, wheeze, rhonchi or dullness. CVS: Regular rate and rhythm, normal S1 and S2, no gallops, no murmurs, no rubs ABDOMEN: Soft, nontender. No hepatosplenomegaly, normal bowel sounds, no guarding or rigidity. EXTREMITIES: No clubbing, no edema, no cyanosis, 2+ pulses and upper and lower extremities. MUSCULOSKELETAL: Muscle strength and tone normal. SPINE: No scoliosis or deformity SKIN: No rashes CENTRAL NERVOUS SYSTEM: Alert and oriented -3. No focal deficits, tone is normal in all 4 extremities. PSYCHIATRIC: Alert and oriented -3. Appropriate affect. Intact judgment and insight. Results - Laboratory Findings CBC and BMP: 05/26/20 08:30 05/26/20 08:30 PT/INR, D-dimer PT 9.5 sec (9.0-12.0) 05/26/20 08:30 INR 0.9 (<1.2) 05/26/20 08:30 Abnormal lab findings: Abnormal Labs 05/26/20 05/26/20 08:30 08:30 Plt Count 127 L Lymphocytes # 0.8 L Carbon Dioxide 31 H Magnesium 2.4 H AST 70 H ALT 49 H Lactate Dehydrogenase 1331 H C-Reactive Protein 34.1 H - Diagnostic Findings Chest x-ray: report reviewed, image reviewed Assessment and Plan Plan: Assessment: #1. Dyspnea, febrile illness, weakness, myalgias, cough, diarrhea related to a cute COVID 19 pneumonia #2. Lymphopenia related to COVID 19 pneumonia #3. Elevated inflammatory markers including LDH and CRP #4. Lifetime nonsmoker #5. Previous history of urinary tract infection with nephrolithiasis #6. History of diverticulitis #7. Previous history of MRSA infection in the left lower leg #8. Elevated liver enzymes Plan: D-dimer is pending, will obtain follow-up inflammatory markers, continue Decadron, Pepcid, zinc, vitamin C, melatonin. Continue gentle IV hydration. Monitor febrile pattern, monitor oxygenation, and dyspnea. We'll add prophylactic dose of Lovenox we have the d-dimer back. We will add Rendesivir. We'll continue to monitor her symptoms right now I performed a history & physical examination of the patient and discussed their management with my nurse practitioner, Delia Steve. I reviewed the nurse practitioner's note and agree with the documented findings and plan of care. Lung sounds are positive for diminished breath sounds. The findings and the impression was discussed with the patient. I attest to the documentation by the nurse practitioner. Time with Patient: Greater than 30
[2020-05-26] MEDS: ZINC SULFATE 220 MG CAP PO SCH (16:49)
[2020-05-26] MEDS: ASCORBIC ACID 500 MG TAB PO SCH (16:49)
[2020-05-26] MEDS: dexAMETHasone 2 MG TAB PO SCH (16:49)
[2020-05-26 17:44] LABS: Ferritin 171.3 ng/mL (10.0-291.0)
[2020-05-26] MEDS ORDERED: REMDESIVIR (EUA) 200 MG in SODIUM CHLORIDE 0.9% 250 ML IVPB ONE (18:00)
[2020-05-26] MEDS: ONDANSETRON 4 MG/2 ML VIAL IVP PRN (18:08)
[2020-05-26] MEDS: FAMOTIDINE 20 MG TAB PO SCH (19:54)
[2020-05-27] MEDS: SODIUM CHLORIDE 0.9% 1,000 ML IV SCH ×2 (01:08→16:07)
[2020-05-27] MEDS: guaiFENesin-DM 100-10MG/5ML 10 ML CUP PO PRN (01:09)
[2020-05-27 06:40] LABS: HCT 37.4 % (34.0-46.0); HGB 12.2 gm/dL (11.4-16.0); MCH 27.6 pg (25.0-35.0); MCHC 32.5 g/dL (31.0-37.0); Mean Platelet Volume 10.9; Platelet Count 100 k/uL (150-450); RBC 4.41 m/uL (3.80-5.40); RDW 13.8 % (11.5-15.5); WBC 2.5 k/uL (3.8-10.6)
[2020-05-27] MEDS: ALBUTEROL HFA INHALER INHALATION PRN (08:13)
[2020-05-27] MEDS: ASCORBIC ACID 500 MG TAB PO SCH (08:41)
[2020-05-27] MEDS: ENOXAPARIN 40 MG/0.4 ML SYRINGE SQ SCH (08:41)
[2020-05-27] MEDS: dexAMETHasone 2 MG TAB PO SCH (08:41)
[2020-05-27] MEDS: FAMOTIDINE 20 MG TAB PO SCH ×2 (08:41→20:32)
[2020-05-27] MEDS: ZINC SULFATE 220 MG CAP PO SCH (08:41)
[2020-05-27 09:12] LABS: African American GFR (CKD) 134.7 (60.0-200.0); Albumin 3.8 g/dL (3.80-4.90); Albumin/Globulin Ratio 1.58 (1.60-3.17); Anion Gap 8.6 mmol/L (4.00-12.00); BUN/Creat Ratio 15.71 Ratio (12.00-20.00); Calcium 8.5 mg/dL (8.7-10.3); Carbon Dioxide 29.4 mmol/L (21.6-31.8); Globulin 2.4 g/dL (1.6-3.3); Non-African American GFR(CKD) 116.3 (60.0-200.0); Potassium 4.2 mmol/L (3.5-5.5); Total Bilirubin 0.3 mg/dL (0.2-1.2); Total Protein 6.2 g/dL (6.2-8.2)
[2020-05-27] MEDS: ALBUTEROL HFA INHALER INHALATION SCH ×3 (11:52→20:58)
--- NOTE | 2020-05-27 14:34 | P.PN ---
Subjective 30-year-old female presenting to the emergency Department with complaints of symptoms of Crohn of virus. Patient states she started with nasal congestion close to 10 days ago. Patient was tested a week ago. Patient now has fevers, fatigue, chills and myalgias, cough with white sputum. Patient still has some nasal congestion and rhinorrhea. Patient doeshave some dyspnea. Patient has diarrhea a couple times per day. No abdominal pain. No nausea vomiting. Patient has not taken Tylenol or Motrin yesterday. No history of significant past medical history or lung problems. Patient still having body aches still doesn't feel good. Patient has been in mother never diagnosed with the Covid 19 as well as but is isolating himself and [id number] is in the hospital now. Liver is being obtained patient does have elevated inflammatory markers, that his LDH, CRP, d-dimer was ordered. 05/27/2020 Patient was started on Remdesevir because of her extensive infiltrates on the chest x-ray with pulmonology. Patient is feeling better today still bit tired 97% on 2 L probably we can completely wean off the oxygen patient is also on Decadron. Most probably patient can be discharged tomorrow. Constitutional: He has some fatigue and myalgias Cardio vascular: denied any chest pain, palpitations Gastrointestinal denied any nausea vomiting Pulmonary: Denied any shortness of breath cough Neurologic denied any new focal deficits All inpatient medications were reviewed and appropriate changes in these medications as dictated in the interval history and assessment and plan. Objective - Vital Signs Vital signs: Vital Signs Temp 98.5 F 05/27/20 07:00 Pulse 70 05/27/20 07:00 Resp 20 05/27/20 07:00 BP 112/71 05/27/20 07:00 Pulse Ox 97 05/27/20 07:00 Intake & Output 05/26/20 05/27/20 05/27/20 18:59 06:59 18:59 Intake Total 225 Balance 225 Weight 122.47 kg Intake: Intake, IV Titration 225 Amount Sodium Chloride 0.9% 1, 225 000 ml @ 75 mls/hr IV . [id number] [facility], [facility]–1983 Rx#:[id number] Other: Voiding Method Toilet # Voids 1 2 - Exam PHYSICAL EXAMINATION: GENERAL: The patient is alert and oriented x3, not in any acute distress. Well developed, well nourished. HEENT: Pupils are round and equally reacting to light. EOMI. No scleral icterus. No conjunctival pallor. Normocephalic, atraumatic. No pharyngeal erythema. No thyromegaly. CARDIOVASCULAR: S1 and S2 present. No murmurs, rubs, or gallops. PULMONARY: Chest is clear to auscultation, no wheezing or crackles. ABDOMEN: Soft, nontender, nondistended, normoactive bowel sounds. No palpable organomegaly. MUSCULOSKELETAL: No joint swelling or deformity. EXTREMITIES: No cyanosis, clubbing, or pedal edema. NEUROLOGICAL: Gross neurological examination did not reveal any focal deficits. SKIN: No rashes. - Labs CBC & Chem 7: 05/27/20 06:19 05/27/20 06:19 Labs: Abnormal Lab Results - Last 24 Hours (Table) 05/26/20 05/27/20 05/27/20 Range/Units 14:42 06:19 06:19 WBC 2.5 L (3.8-10.6) k/uL Plt Count 100 L (150-450) k/uL D-Dimer 0.62 H (<0.60) mg/L FEU Calcium 8.5 L (8.7-10.3) mg/dL AST 46 H (13-35) U/L Albumin/Globulin Ratio 1.58 L (1.60-3.17) g/dL Microbiology - Last 24 Hours (Table) 05/26/20 08:30 Blood Culture - Preliminary Blood No Growth after 24 hours Assessment and Plan Plan: -Covid 19 pneumonitis: Patient will be started on Decadron and patient received a second dose of Remdesevir day. If patient remains medically stable clinically well patient probably can be discharged for more days of Decadron tomorrow. Patient's d-dimer is within normal limits or minimally elevated -Mild transaminitis nonspecific elevation no further intervention at this time can be related to Covid 19 sepsis -Mild thrombocytopenia secondary to sepsis from Covid 19 -DVT prophylaxis: With Lovenox GI prophylaxis Pepcid
--- NOTE | 2020-05-27 15:53 | P.PN ---
Subjective Progress Note Date: 05/27/20 Principal diagnosis: COVID 19 pneumonitis 30-year-old female patient of Dr. Mendez with past medical history of diverticulitis, previous urinary tract infection with nephrolithiasis, who presented to the hospital on 05/26/2020 with complaints of fever, fatigue, chills, myalgia, cough, some white sputum production and dyspnea. 10 days ago patient had onset of nasal congestion, and she still continues to have nasal congestion and rhinorrhea. Patient reports diarrhea, couple times a day. No nausea or vomiting, no abdominal pain. No history of chronic lung disease, patient is a nonsmoker, no significant past medical history. Chest x-ray showed patchy peripheral interstitial changes with confluent infiltrate that the left mid lung. Patient is febrile on presentation with a temp of 101.1F. Her O2 saturation was 90-93 on room air, patient was placed on supplemental oxygen until recently pulse ox is 97%. Her lab work revealed lymphopenia with lymphocyte count of 0.8, CO2 is 31, the rest of the electrolytes and renal profile were unremarkable, plasma lactic acid was 1.2, AST was 70, ALT was 49, LDH was 1331, CRP was 34.1. Patient was tested for COVID 19 on an outpatient basis days ago. Patient was placed in droplet precautions. She was started on oral Decadron, Pepcid, Robitussin, she is receiving gentle IV hydration. On 05/27/2020 patient seen in follow-up on medical surgical floor. She states she is feeling better today, coughing less, especially of breath, she is on day 2 of Remdesivir. She had 2 L of oxygen. She sat 97%, on 2 L, afebrile today, no nausea vomiting or diarrhea, labs have been reviewed, white blood cell count is 2.5, hemoglobin is 12.2, d-dimer 0.62, electrolytes and renal profile were within normal limits, liver enzymes are improving, procalcitonin is negative at 0.06 Objective - Vital Signs Vital signs: Vital Signs Temp 98.5 F 05/27/20 07:00 Pulse 70 05/27/20 07:00 Resp 20 05/27/20 07:00 BP 112/71 05/27/20 07:00 Pulse Ox 97 05/27/20 07:00 Intake & Output 05/26/20 05/27/20 05/27/20 18:59 06:59 18:59 Intake Total 225 Balance 225 Weight 122.47 kg Intake: Intake, IV Titration 225 Amount Sodium Chloride 0.9% 1, 225 000 ml @ 75 mls/hr IV . [id number] [facility] Rx#:[id number] Other: Voiding Method Toilet # Voids 1 2 - Exam GENERAL EXAM: Alert, very pleasant, 30-year-old white female, 2 L of oxygen with pulse ox of 97% comfortable in no apparent distress. HEAD: Normocephalic/atraumatic. EYES: Normal reaction of pupils, equal size. Conjunctiva pink, sclera white. NOSE: Clear with pink turbinates. THROAT: No erythema or exudates. NECK: No masses, no JVD, no thyroid enlargement, no adenopathy. CHEST: No chest wall deformity. Symmetrical expansion. LUNGS: Equal air entry with no crackles, wheeze, rhonchi or dullness. CVS: Regular rate and rhythm, normal S1 and S2, no gallops, no murmurs, no rubs ABDOMEN: Soft, nontender. No hepatosplenomegaly, normal bowel sounds, no guarding or rigidity. EXTREMITIES: No clubbing, no edema, no cyanosis, 2+ pulses and upper and lower extremities. MUSCULOSKELETAL: Muscle strength and tone normal. SPINE: No scoliosis or deformity SKIN: No rashes CENTRAL NERVOUS SYSTEM: Alert and oriented -3. No focal deficits, tone is normal in all 4 extremities. PSYCHIATRIC: Alert and oriented -3. Appropriate affect. Intact judgment and insight. - Labs CBC & Chem 7: 05/27/20 06:19 05/27/20 06:19 Labs: Abnormal Lab Results - Last 24 Hours (Table) 05/27/20 05/27/20 Range/Units 06:19 06:19 WBC 2.5 L (3.8-10.6) k/uL Plt Count 100 L (150-450) k/uL Calcium 8.5 L (8.7-10.3) mg/dL AST 46 H (13-35) U/L Albumin/Globulin Ratio 1.58 L (1.60-3.17) g/dL Microbiology - Last 24 Hours (Table) 05/26/20 08:30 Blood Culture - Preliminary Blood No Growth after 24 hours Assessment and Plan Plan: Assessment: #1. Dyspnea, febrile illness, weakness, myalgias, cough, diarrhea related to acute COVID 19 pneumonia #2. Lymphopenia related to COVID 19 pneumonia #3. Elevated inflammatory markers including LDH and CRP #4. Lifetime nonsmoker #5. Previous history of urinary tract infection with nephrolithiasis #6. History of diverticulitis #7. Previous history of MRSA infection in the left lower leg #8. Elevated liver enzymes Plan: Continue current medical treatment, she is on day 2 of Remdesivir, continue oral Decadron, prophylactic doses of Lovenox, and supplements. Feeling better today, febrile pattern has improved, we'll continue to follow inflammatory markers, oxygenation pattern afebrile.. I performed a history & physical examination of the patient and discussed their management with my nurse practitioner, Delia Steve. I reviewed the nurse practitioner's note and agree with the documented findings and plan of care. Lung sounds are positive for diminished breath sounds. The findings and the impression was discussed with the patient. I attest to the documentation by the nurse practitioner. Time with Patient: Less than 30
[2020-05-27] MEDS: REMDESIVIR (EUA) 100 MG in SODIUM CHLORIDE 0.9% 250 ML IVPB SCH (17:25)
[2020-05-27] MEDS: ONDANSETRON 4 MG/2 ML VIAL IVP PRN (17:31)
[2020-05-28] MEDS: ALBUTEROL HFA INHALER INHALATION PRN ×2 (00:52→04:03)
[2020-05-28] MEDS: SODIUM CHLORIDE 0.9% 1,000 ML IV SCH ×2 (04:30→16:48)
[2020-05-28 07:49] VITALS: RESP 18
[2020-05-28] MEDS: ZINC SULFATE 220 MG CAP PO SCH (08:15)
[2020-05-28] MEDS: ENOXAPARIN 40 MG/0.4 ML SYRINGE SQ SCH (08:15)
[2020-05-28] MEDS: guaiFENesin-DM 100-10MG/5ML 10 ML CUP PO PRN (08:15)
[2020-05-28] MEDS: dexAMETHasone 2 MG TAB PO SCH (08:15)
[2020-05-28] MEDS: ASCORBIC ACID 500 MG TAB PO SCH (08:16)
[2020-05-28] MEDS: FAMOTIDINE 20 MG TAB PO SCH (08:16)
[2020-05-28] MEDS: ALBUTEROL HFA INHALER INHALATION SCH ×3 (09:05→16:35)
--- NOTE | 2020-05-28 09:33 | XR ---
EXAMINATION TYPE: XR chest 1V portable DATE OF EXAM: 05/28/2020 COMPARISON: 05/26/2020 INDICATION: Shortness of breath TECHNIQUE: Single frontal view of the chest is obtained. FINDINGS: The heart size is normal. The pulmonary vasculature is normal. There is a left peripheral lung infiltrate stable. There is some increasing infiltrate left lower david g in the infrahilar region. Mild infiltrate is in the right suprahilar region. IMPRESSION: 1. Worsening bilateral lung infiltrates. Correlate for atypical pneumonia.
--- NOTE | 2020-05-28 13:09 | P.PN ---
Subjective Progress Note Date: 05/28/20 Principal diagnosis: CoVID 19 pneumonitis 30-year-old female patient of Dr. Mendez with past medical history of diverticulitis, previous urinary tract infection with nephrolithiasis, who presented to the hospital on 05/26/2020 with complaints of fever, fatigue, chills, myalgia, cough, some white sputum production and dyspnea. 10 days ago patient had onset of nasal congestion, and she still continues to have nasal congestion and rhinorrhea. Patient reports diarrhea, couple times a day. No nausea or vomiting, no abdominal pain. No history of chronic lung disease, patient is a nonsmoker, no significant past medical history. Chest x-ray showed patchy peripheral interstitial changes with confluent infiltrate that the left mid lung. Patient is febrile on presentation with a temp of 101.1F. Her O2 saturation was 90-93 on room air, patient was placed on supplemental oxygen until recently pulse ox is 97%. Her lab work revealed lymphopenia with lymphocyte count of 0.8, CO2 is 31, the rest of the electrolytes and renal profile were unremarkable, plasma lactic acid was 1.2, AST was 70, ALT was 49, LDH was 1331, CRP was 34.1. Patient was tested for COVID 19 on an outpatient basis days ago. Patient was placed in droplet precautions. She was started on oral Decadron, Pepcid, Robitussin, she is receiving gentle IV hydration. On 05/27/2020 patient seen in follow-up on medical surgical floor. She states she is feeling better today, coughing less, especially of breath, she is on day 2 of Remdesivir. She had 2 L of oxygen. She sat 97%, on 2 L, afebrile today, no nausea vomiting or diarrhea, labs have been reviewed, white blood cell count is 2.5, hemoglobin is 12.2, d-dimer 0.62, electrolytes and renal profile were within normal limits, liver enzymes are improving, procalcitonin is negative at 0.06 The patient is seen today 05/28/2020 follow-up on the regular medical floor. She is currently sitting up in a chair at the bedside. Awake and alert in no acute distress. He continues with a loose nonproductive cough. She is maintaining O2 saturations in the mid 90s on room air. She's afebrile. Hemodynamically stable. Blood culture reveals no growth. LDH 406. C-reactive protein 3.0. She is on her third day of Remdesivir. Continued on Pepcid, Lovenox, dexamethasone, zinc, vitamin C. Objective - Vital Signs Vital signs: Vital Signs Temp 98.0 F 05/28/20 07:00 Pulse 66 05/28/20 07:00 Resp 18 05/28/20 07:00 BP 110/69 05/28/20 07:00 Pulse Ox 95 05/28/20 07:00 Intake & Output 05/27/20 05/28/20 05/28/20 18:59 06:59 18:59 Other: Voiding Method Toilet # Voids 3 2 - Exam GENERAL EXAM: Alert, active, pleasant 30-year-old female patient, on room air, comfortable in no apparent distress. HEAD: Normocephalic. EYES: Normal reaction of pupils, equal size. NOSE: Clear with pink turbinates. THROAT: No erythema or exudates. NECK: No masses, no JVD. CHEST: No chest wall deformity. LUNGS: Equal air entry with no crackles, wheeze, rhonchi or dullness. CVS: S1 and S2 normal with no audible murmur, regular rhythm. ABDOMEN: No hepatosplenomegaly, normal bowel sounds, no guarding or rigidity. SPINE: No scoliosis or deformity SKIN: No rashes CENTRAL NERVOUS SYSTEM: No focal deficits, tone is normal in all 4 extremities. EXTREMITIES: There is no peripheral edema. No clubbing, no cyanosis. Per ipheral pulses are intact. - Labs CBC & Chem 7: 05/27/20 06:19 05/27/20 06:19 Labs: Abnormal Lab Results - Last 24 Hours (Table) 05/28/20 Range/Units 05:44 Lactate Dehydrogenase 406 H (120-246) U/L C-Reactive Protein 3.0 H (0.0-0.8) mg/dL Microbiology - Last 24 Hours (Table) 05/26/20 08:30 Blood Culture - Preliminary Blood No Growth after 48 hours Assessment and Plan Assessment: #1. Dyspnea, febrile illness, weakness, myalgias, cough, diarrhea related to acute COVID 19 pneumonia #2. Lymphopenia related to COVID 19 pneumonia #3. Elevated inflammatory markers including LDH and CRP #4. Lifetime nonsmoker #5. Previous history of urinary tract infection with nephrolithiasis #6. History of diverticulitis #7. Previous history of MRSA infection in the left lower leg #8. Elevated liver enzymes Plan: The patient was seen and evaluated by Dr. Watson She is cleared for discharge following her third dose of Remdesivir today Complete 10 days total of Decadron Remain in isolation precaution Follow-up with her PCP I, the cosigning physician, performed a history & physical examination of the patient. Lungs sounds are clear. Maintaining good O2 saturations in the 90s on room air. I discussed the assessment and plan of care with my nurse practitioner, Debbie Valadez. I attest to the above note as dictated by her.
[2020-05-28 14:28] VITALS: BP 121/72; PULSE 95; TEMP 98.4
[2020-05-28] MEDS: REMDESIVIR (EUA) 100 MG in SODIUM CHLORIDE 0.9% 250 ML IVPB SCH (16:23)
[2020-05-28] MEDS: ONDANSETRON 4 MG/2 ML VIAL IVP PRN (16:26)
== END 2020-05-28 18:02 | disposition home or self-care (01) | DRG 871 ==
LOC: EC 07:39 → 4SSUR 10:42
PROVIDERS: ADMIT Internal Medicine; ATTEND Internal Medicine
DX: A41.89 Other specified sepsis (principal); U07.1 COVID-19; J12.89 Other viral pneumonia; D72.810 Lymphocytopenia; D69.59 Other secondary thrombocytopenia; Z88.0 Allergy status to penicillin; Z83.3 Family history of diabetes mellitus; Z82.49 Family history of ischemic heart disease and other diseases of the circulatory system; Z86.14 Personal history of Methicillin resistant Staphylococcus aureus infection; Z90.49 Acquired absence of other specified parts of digestive tract; Z98.890 Other specified postprocedural states; Z87.440 Personal history of urinary (tract) infections; Z87.442 Personal history of urinary calculi; Z87.19 Personal history of other diseases of the digestive system
CPT/HCPCS: 36415; 71045; 80053; 82728; 83605; 83615; 83735; 84145; 85025; 85027; 85379; 85610; 85730; 86140; 87040; 93005; 94640; 99285

== ENCOUNTER 2021-10-03 07:34 | Emergency (ER) | payer BC ==
[2021-10-03 07:38] VITALS: PULSE 87
[2021-10-03] MEDS ORDERED: KETOROLAC 15 MG/ML 1 ML VIAL IM STA (08:29)
--- NOTE | 2021-10-03 08:50 | ED ---
General Adult HPI - General Chief complaint: Abdominal Pain Stated complaint: abd pain Time Seen by Provider: 10/03/21 07:48 Source: patient, family Mode of arrival: ambulatory Limitations: no limitations - History of Present Illness Initial comments: 31-year-old female presents to the emergency room for a chief complaint of pelvic cramping. Patient states that she had an IUD placed on September 08 this year. Patient has had cramping and pelvic pain at a 5 out of 10 consistently since that time. Patient did see her [facility]ADIUM MANAGER last week and they ordered an ultrasound but it is not for 2 more weeks. Patient states last night she started having intercourse and the pain has worsened to an 8 out of 10. Patient took Tylenol last night but did not take any Motrin. Has been having mild vaginal bleeding spotting since that time however no significant bleeding. Eyes any fevers. Denies vaginal discharge. Patient has no other complaints at this time including shortness of breath, chest pain, nausea or vomiting, headache, or visual changes. - Related Data Home Medications Medication Instructions Recorded Confirmed Azithromycin [Zithromax Z-pack (6 See Taper PO DIRECTED 05/26/20 05/26/20 tabs)] guaiFENesin [Mucinex] 600 mg PO BID PRN 05/26/20 05/26/20 Previous Rx's Medication Instructions Recorded Albuterol Inhaler [Ventolin Hfa 2 puff INHALATION RT-QID PRN #1 05/28/20 Inhaler] inhaler dexAMETHasone ORAL [Hexadrol] 6 mg PO DAILY #7 tab 05/28/20 Allergies Allergy/AdvReac Type Severity Reaction Status Date / Time amoxicillin Allergy Rash/Hives Verified 10/03/21 07:36 Penicillins Allergy Rash/Hives Verified 10/03/21 07:35 Review of Systems ROS Statement: Those systems with pertinent positive or pertinent negative responses have been documented in the HPI. ROS Other: All systems not noted in ROS Statement are negative. Past Medical History Past Medical History: No Reported History Additional Past Medical History / Comment(s): diverticulitis, UTI, nephrolithiasis-pt passed on her own. History of Any Multi-Drug Resistant Organisms: MRSA Date of last positivie culture/infection: 2009 MDRO Source:: lower left leg Past Surgical History: Appendectomy, Cholecystectomy Past Anesthesia/Blood Transfusion Reactions: No Reported Reaction, Motion Sickness Past Psychological History: No Psychological Hx Reported Smoking Status: Never smoker Past Alcohol Use History: Occasional Past Drug Use History: None Reported - Past Family History Father Family Medical History: Diabetes Mellitus Mother Family Medical History: Hypertension General Exam Limitations: no limitations General appearance: alert, in no apparent distress Head exam: Present: atraumatic Eye exam: Present: normal appearance, PERRL, EOMI. Absent: scleral icterus, conjunctival injection ENT exam: Present: normal exam, mucous membranes moist Neck exam: Present: normal inspection, full ROM. Absent: tenderness Respiratory exam: Present: normal lung sounds bilaterally. Absent: respiratory distress, wheezes Cardiovascular Exam: Present: regular rate, normal rhythm, normal heart sounds GI/Abdominal exam: Present: soft, normal bowel sounds. Absent: distended, ten derness External exam: Present: normal external exam. Absent: erythema, swelling, lesions, lacerations, ecchymosis Speculum exam: Present: other (IUD string noted. Very minimal bleeding noted from the cervix). Absent: erythema, vaginal discharge, cervical discharge, vaginal bleeding, foreign body By manual exam: Present: normal by manual exam. Absent: cervical motion tenderness, adnexal tenderness, uterine tenderness Course Vital Signs 10/03/21 07:36 Temperature 97.1 F L Pulse Rate 87 Respiratory 16 Rate Blood Pressure 125/74 O2 Sat by Pulse 97 Oximetry Medical Decision Making - Medical Decision Making Vitals are stable. Patient is well appearing. Pelvic exam was performed. IUD strings evident. Urinalysis is negative. HCG is negative. Trichomonas is negative. Gonorrhea and chlamydia pending. Patient does not have concern for STDs at this time. Ultrasound shows an IUD that appears to be appropriately placed. There are bilateral ovarian follicular cysts. At this time patient was given Toradol which did help with her pain. She was encouraged to try Motrin instead of Tylenol for pelvic pain. She will follow up with her [facility]ADIUM MANAGER as soon as possible. She will return here for any worsening symptoms. Disposition Clinical Impression: Ovarian cyst, IUD (intrauterine device) in place, Pelvic pain Disposition: HOME SELF-CARE Condition: Good Instructions (If sedation given, give patient instructions): Ovarian Cyst (ED), Pelvic Pain in Women (ED) Additional Instructions: Please take Motrin for pain. Follow-up with your primary care [facility]ICAL [facility] WORKER as soon as possible. Return to the emergency room for any worsening symptoms. Is patient prescribed a controlled substance at d/c from ED?: No Referrals: Nia Presley DO [Primary Care Provider] - 1-2 days Nico Carter MD [STAFF PHYSICIAN] - 1-2 days Time of Disposition: 10:05
[2021-10-03 08:54] LABS: Appearance,Urine Clear (Clear); Bilirubin,Urine Negative (Negative); Blood,Urine Negative (Negative); Color,Urine Yellow; Glucose,Urine (UA) Negative (Negative); Ketones,Urine Negative (Negative); Leukocyte Esterase,Urine Negative (Negative); Nitrite,Urine Negative (Negative); Protein,Urine Negative (Negative); Specific Gravity,Urine 1.021 (1.001-1.035)
--- NOTE | 2021-10-03 09:09 | US ---
EXAMINATION TYPE: US transvaginal DATE OF EXAM: 10/03/2021 COMPARISON: NONE CLINICAL HISTORY: pain since IUD placement early sep 2021. IUD - Mirena, placed Sep 08, pain and bl eeding followed TECHNIQUE: tv. Transvaginal sonographic images Date of LMP: 09/06/2021 EXAM MEASUREMENTS: Uterus: 12.8 x 6.6 x 6.0 cm Endometrial Stripe: 0.4 cm Right Ovary: 4.2 x 3.1 x 3.0 cm Left Ovary: 3.5 x 2.1 x 1.7 cm 1. Uterus: Retroverted wnl 2. Endometrium: IUD seen within mid/fundal portion with no obvious displacement 3. Right Ovary: simple cyst = 3.4 x 2.6 x 2.2cm 4. Left Ovary: dominate follicle = 1.7 x 1.8 x 1.5cm Spectral, color and waveform doppler imaging shows good arterial and venous flow within the ovaries ; there is no evidence for ovarian torsion. 5. Bilateral Adnexa: wnl 6. Posterior cul-de-sac: wnl IMPRESSION: 1. IUD appears to be appropriately placed. 2. Bilateral ovarian follicular cysts.
[2021-10-03 10:24] VITALS: BP 104/56; RESP 18; TEMP 98
== END 2021-10-03 10:24 | disposition home or self-care (01) ==
LOC: EC 07:34
DX: N83.202 Unspecified ovarian cyst, left side (principal); N83.201 Unspecified ovarian cyst, right side; Z88.0 Allergy status to penicillin
CPT/HCPCS: 81003; 81025; 87808; 87491; 87591; 93975; 76830; 99284; 96372; J1885

== ENCOUNTER 2022-11-09 10:09 | Emergency (ER) | payer BC ==
[2022-11-09] MEDS ORDERED: diphenhydrAMINE 50 MG/ML 1 ML VIAL IVP STA (10:24)
[2022-11-09] MEDS ORDERED: METOCLOPRAMIDE 5 MG/ML 2 ML VIAL IVP STA (10:24)
[2022-11-09] MEDS ORDERED: SODIUM CHLORIDE 0.9% 2,000 ML IV STA (10:24)
[2022-11-09] MEDS ORDERED: ACETAMINOPHEN IV (For NPO) 1,000 MG in EMPTY BAG 1 BAG IVPB STA (10:24)
[2022-11-09] MEDS ORDERED: CAFFEINE-SODIUM BENZOATE 300 MG in SODIUM CHLORIDE 0.9% 1,000 ML IVPB ONE (10:24)
[2022-11-09] MEDS ORDERED: PYRIDOXINE 100 MG/ML 1 ML VIAL IVP SCH (10:30)
[2022-11-09] MEDS ORDERED: CAFFEINE-SODIUM BENZOATE 500 MG in SODIUM CHLORIDE 0.9% 1,000 ML IVPB ONE (10:31)
--- NOTE | 2022-11-09 10:37 | ED ---
Nausea/Vomiting/Diarrhea HPI - General Chief complaint: Nausea/Vomiting/Diarrhea Stated complaint: Vomiting,Headache Time Seen by Provider: 11/09/22 10:17 Source: patient, RN notes reviewed Mode of arrival: ambulatory Limitations: no limitations - History of Present Illness Initial comments: This is a 32-year-old female who presents to the emergency department for nausea, vomiting, and headaches. Patient is 6.5 weeks and . She is a patient of Dr. Carter, [facility], but does not have an appointment for another 4 weeks. States that the headache started before the nausea and vomiting. She would not describe this as the worst headache of her life. Denies any problems with this in her prior . She has been unable to keep anything down over the last 2 days. Denies any fevers. She has minor epigastric abdominal pain which she associates with the vomiting, but is not having any lower abdominal cramping. Denies any vaginal bleeding or discharge. She did go to urgent care before coming here. She was given Zofran and states that this was not effective. Denies any fevers, chills, sore throat, cough, dyspnea, chest pain, palpitations, diarrhea, or back pain. MD complaint: nausea, vomiting, abdominal pain Onset/Timin -: days(s) Associated Abdominal Pain: Yes Location: epigastric - Related Data Home Medications Medication Instructions Recorded Confirmed [id number] Acid 1 cap PO HS 11/09/22 11/09/22 [-U Capsule (formulary)] Previous Rx's Medication Instructions Recorded Cephalexin [Keflex] 500 mg PO Q8HR 7 Days #21 cap 11/09/22 Doxylamine Succinate/Vit B6 1 each PO TID PRN #20 tab 11/09/22 [Doxylamine-Pyridoxine 10-10 mg] Metoclopramide [Reglan] 10 mg PO Q6H PRN #15 tab 11/09/22 Ondansetron Odt [Zofran Odt] 4 mg PO Q8HR PRN #15 tab 11/09/22 Allergies Allergy/AdvReac Type Severity Reaction Status Date / Time amoxicillin Allergy Rash/Hives Verified 11/09/22 10:43 Penicillins Allergy Rash/Hives Verified 11/09/22 10:43 Review of Systems ROS Statement: Those systems with pertinent positive or pertinent negative responses have been documented in the HPI. ROS Other: All systems not noted in ROS Statement are negative. Past Medical History Past Medical History: No Reported History Additional Past Medical History / Comment(s): diverticulitis, UTI, nephrolithiasis-pt passed on her own. History of Any Multi-Drug Resistant Organisms: MRSA Date of last positivie culture/infection: 2009 MDRO Source:: lower left leg Past Surgical History: Appendectomy, Cholecystectomy Past Anesthesia/Blood Transfusion Reactions: No Reported Reaction, Motion Sickness Past Psychological History: No Psychological Hx Reported Smoking Status: Never smoker Past Alcohol Use History: Occasional Past Drug Use History: None Reported - Past Family History Father Family Medical History: Diabetes Mellitus Mother Family Medical History: Hypertension General Exam Limitations: no limitations General appearance: alert, in no apparent distress Head exam: Present: atraumatic, normocephalic, normal inspection Respiratory exam: Present: normal lung sounds bilaterally. Absent: respiratory distress, wheezes, rales, rhonchi, stridor Cardiovascular Exam: Present: regular rate, normal rhythm, normal heart sounds. Absent: systolic murmur, diastolic murmur, rubs, gallop, clicks Neurological exam: Present: alert, oriented X3, CN II-XII intact Psychiatric exam: Present: normal affect, normal mood Skin exam: Present: warm, dry, intact, normal color. Absent: rash Course Vital Signs 11/09/22 11/09/22 10:13 14:00 Temperature 98 F 98.1 F Pulse Rate 71 74 Respiratory 20 18 Rate Blood Pressure 109/74 107/55 O2 Sat by Pulse 99 100 Oximetry Medical Decision Making - Medical Decision Making This is a 32-year-old female who presents to the emergency department for nausea, vomiting, and headaches. Was pt. sent in by a medical professional or institution? @ -No Did you speak to anyone other than the patient for history? @ -No Did you review nursing and triage notes? @ -Yes, and I agree, it is accurate with regards to the patient's symptoms. Were old charts reviewed? @ -No Differential Diagnosis? @ -Differential Nausea and Vomiting: Gastroenteritis, cholecystitis, appendicitis, pancreatitis, migraine, benign positional vertigo, food borne illness, pyelonephritis, irritable bowel syndrome, influenza, Covid, GERD, incarcerated hernia, intestinal obstruction, hyperemesis gravidarum, this is not meant to be an all-inclusive list. -Differential Headache: Migraine, tension, cluster, carbon monoxide, central venous thrombosis, pension karma temporal arteritis, acute closure glaucoma, intercranial hemorrhage, mas toiditis, sinusitis, head injury, this is not meant to be an all-inclusive list. What testing was considered but not performed? (CT, X-rays, U/S, labs)? Why? @ -None What meds were considered but not given? Why? @ -None Did you discuss the management of the patient with other professionals? @ -No Did you reconcile home meds? @ -No Was smoking cessation discussed for >3mins.? @ -No Was critical care preformed (if so, how long)? @ -No Were there social determinants of health that impacted care today? How? (Homelessness, low income, unemployed, alcoholism, drug addiction, transportation, low edu. Level, literacy, decrease access to med. care, skilled nursing, rehab)? @ -No Was there de-escalation of care discussed even if they declined? (Discuss DNR or withdrawal of care, Hospice)? @ -No What co-morbidities impacted this encounter? (DM, HTN, Smoking, COPD, CAD, Cancer, CVA, Hep., AIDS, mental health diagnosis, sleep apnea, morbid obesity)? @ - Was patient admitted / discharged? @ -Discharged. Lab work obtained and found to be nonactionable. Urinalysis positive for a UTI. COVID, influenza, and RSV testing negative. Patient was given IV fluids, Ofirmev, and caffeine for her headache, which essentially res olved her symptoms. Benadryl and Reglan initially treated the nausea well, however it then returned and she required a dose of Zofran. Patient ultimately felt significantly improved afterwards and requested discharge home. Prescription for Keflex, Zofran, and Diclegis provided with dosing instructions reviewed. She is advised to start with the Diclegis for any nausea and vomiting, and if that is not effective, to try the Zofran. Also advised she remain well-hydrated and slowly advance her diet as tolerated. Undiagnosed new problem with uncertain prognosis? @ -None Drug Therapy requiring intensive monitoring for toxicity (Heparin, Nitro, Insulin, Cardizem)? @ -None Were any procedures done? @ -None Diagnosis/symptom? @ -Headache, Nausea and vomiting in Acute, or Chronic, or Acute on Chronic? @ -Acute Uncomplicated (without systemic symptoms) or Complicated (systemic symptoms)? @ -Uncomplicated Side effects of treatment? @ -None Exacerbation, Progression, or Severe Exacerbation] @ -Not applicable Poses a threat to life or bodily function? @ -No Return precautions reviewed in depth, the patient is instructed to return to the emergency department with any new, worsening, or concerning symptoms. Patient verbalized understanding. This case was discussed in detail with the attending ED physician, Dr. Saldaña. Presentation, findings, and treatment plan discussed in detail as well. - Lab Data Result diagrams: 11/09/22 11:01 11/09/22 11: Lab Results 11/09/22 11/09/22 11/09/22 Range/Units 11: 11: 11: WBC 7.7 (3.8-10.6) k/uL RBC 4.85 (3.80-5.40) m/uL Hgb 13.9 (11.4-16.0) gm/dL Hct 41.6 (34.0-46.0) % MCV 85.8 (80.0-100.0) fL MCH 28.8 (25.0-35.0) pg MCHC 33.5 (31.0-37.0) g/dL RDW 13.2 (11.5-15.5) % Plt Count 116 L (150-450) k/uL MPV 13.7 Neutrophils % 65 % Lymphocytes % 27 % Monocytes % 4 % Eosinophils % 1 % Basophils % 0 % Neutrophils # 5.0 (1.3-7.7) k/uL Lymphocytes # 2.1 (1.0-4.8) k/uL Monocytes # 0.3 (0-1.0) k/uL Eosinophils # 0.1 (0-0.7) k/uL Basophils # 0.0 (0-0.2) k/uL Manual Slide Review Performed Large Platelets Present Sodium 137 (137-145) mmol/L Potassium 4.4 (3.5-5.1) mmol/L Chloride 104 (98-107) mmol/L Carbon Dioxide 26 (22-30) mmol/L Anion Gap 7 mmol/L BUN 7 (7-17) mg/dL Creatinine 0.65 (0.52-1.04) mg/dL Est GFR (CKD-EPI)AfAm >90 (>60 ml/min/1.73 sqM) Est GFR (CKD-EPI)NonAf >90 (>60 ml/min/1.73 sqM) Glucose 80 (74-99) mg/dL Calcium 9.5 (8.4-10.2) mg/dL Total Bilirubin 0.6 (0.2-1.3) mg/dL AST 25 (14-36) U/L ALT 18 (4-34) U/L Alkaline Phosphatase 73 (38-126) U/L Total Protein 7.6 (6.3-8.2) g/dL Albumin 4.2 (3.5-5.0) g/dL Amylase 60 (30-110) U/L Lipase 62 (23-300) U/L HCG, Quant 05526.9 mIU/mL Urine Color Urine Appearance (Clear) Urine pH (5.0-8.0) Ur Specific [place] (1.001-1.035) Urine Protein (Negative) Urine Glucose (UA) (Negative) Urine Ketones (Negative) Urine Blood (Negative) Urine Nitrite (Negative) Urine Bilirubin (Negative) Urine Urobilinogen (<2.0) mg/dL Ur Leukocyte Esterase (Negative) Urine RBC (0-5) /hpf Urine WBC (0-5) /hpf Ur Squamous Epith Cells (0-4) /hpf Urine Bacteria (None) /hpf Urine Mucus (None) /hpf Influenza Type A (PCR) (Not Detectd) Influenza Type B (PCR) (Not Detectd) RSV (PCR) (Not Detectd) SARS-CoV-2 (PCR) (Not Detectd) Blood Type O Positive Blood Type Recheck No Previous Record Bld Type Recheck Status [facility] ONLY 11/09/22 11/09/22 Range/Units 12:20 12:50 WBC (3.8-10.6) k/uL RBC (3.80-5.40) m/uL Hgb (11.4-16.0) gm/dL Hct (34.0-46.0) % MCV (80.0-100.0) fL MCH (25.0-35.0) pg MCHC (31.0-37.0) g/dL RDW (11.5-15.5) % Plt Count (150-450) k/uL MPV Neutrophils % % Lymphocytes % % Monocytes % % Eosinophils % % Basophils % % Neutrophils # (1.3-7.7) k/uL Lymphocytes # (1.0-4.8) k/uL Monocytes # (0-1.0) k/uL Eosinophils # (0-0.7) k/uL Basophils # (0-0.2) k/uL Manual Slide Review Large Platelets Sodium (137-145) mmol/L Potassium (3.5-5.1) mmol/L Chloride (98-107) mmol/L Carbon Dioxide (22-30) mmol/L Anion Gap mmol/L BUN (7-17) mg/dL Creatinine (0.52-1.04) mg/dL Est GFR (CKD-EPI)AfAm (>60 ml/min/1.73 sqM) Est GFR (CKD-EPI)NonAf (>60 ml/min/1.73 sqM) Glucose (74-99) mg/dL Calcium (8.4-10.2) mg/dL Total Bilirubin (0.2-1.3) mg/dL AST (14-36) U/L ALT (4-34) U/L Alkaline Phosphatase (38-126) U/L Total Protein (6.3-8.2) g/dL Albumin (3.5-5.0) g/dL Amylase (30-110) U/L Lipase (23-300) U/L HCG, Quant mIU/mL Urine Color Yellow Urine Appearance Cloudy H (Clear) Urine pH 6.0 (5.0-8.0) Ur Specific [place] 1.030 (1.001-1.035) Urine Protein Trace H (Negative) Urine Glucose (UA) Negative (Negative) Urine Ketones 1+ H (Negative) Urine Blood Negative (Negative) Urine Nitrite Negative (Negative) Urine Bilirubin Negative (Negative) Urine Urobilinogen <2.0 (<2.0) mg/dL Ur Leukocyte Esterase Large H (Negative) Urine RBC 7 H (0-5) /hpf Urine WBC 4 (0-5) /hpf Ur Squamous Epith Cells 3 (0-4) /hpf Urine Bacteria Occasional H (None) /hpf Urine Mucus Many H (None) /hpf Influenza Type A (PCR) Not Detected (Not Detectd) Influenza Type B (PCR) Not Detected (Not Detectd) RSV (PCR) Not Detected (Not Detectd) SARS-CoV-2 (PCR) Not Detected (Not Detectd) Blood Type Blood Type Recheck Bld Type Recheck Status Disposition Clinical Impression: Nausea and vomiting during , Acute headache Disposition: HOME SELF-CARE Instructions (If sedation given, give patient instructions): Nausea and Vomiting in (ED) Additional Instructions: Return to the emergency department with any new, worsening, or concerning symptoms. You can take the doxylamine pyridoxine up to 3 times daily as needed for nausea and vomiting. Start with 2 tablets at night, if symptoms persist after 2 days, increase the dosage to 1 tablet every morning and 2 tablets at night. You may further increase the dose if needed to 1 tablet in the morning, 1 tablet in the mid to afternoon, and 2 tablets at night, with a maximum of 4 tablets each day. Take this on an empty stomach. If the doxylamine pyridoxine is not effective, you can try the Zofran or Reglan. If that is not effective, take the other medication. Make sure that you remain well-hydrated and slowly advance your diet as tolerated. Take the antibiotic as prescribed for 7 days. You can take Tylenol, Benadryl, and up to 300 mg of caffeine daily as needed for headaches. Follow-up with Dr. Carter as scheduled. Prescriptions: Doxylamine Succinate/Vit B6 [Doxylamine-Pyridoxine 10-10 mg] 1 each PO TID PRN #20 tab PRN Reason: Nausea And Vomiting Cephalexin [Keflex] 500 mg PO Q8HR 7 Days #21 cap Metoclopramide [Reglan] 10 mg PO Q6H PRN #15 tab PRN Reason: Nausea And Vomiting Ondansetron Odt [Zofran Odt] 4 mg PO Q8HR PRN #15 tab PRN Reason: Nausea And Vomiting Is patient prescribed a controlled substance at d/c from ED?: No Referrals: Nia Presley DO [Primary Care Provider] - 1-2 days
[2022-11-09 11:48] LABS: ALT 18 U/L (4-34); AST 25 U/L (14-36); African American GFR (CKD) >90 (>60 ml/min/1.73 sqM); Albumin 4.2 g/dL (3.5-5.0); Alkaline Phosphatase 73 U/L (38-126); Amylase 60 U/L (30-110); Anion Gap 7 mmol/L; Blood Urea Nitrogen 7 mg/dL (7-17); Calcium 9.5 mg/dL (8.4-10.2); Carbon Dioxide 26 mmol/L (22-30); Chloride 104 mmol/L (98-107); Glucose 80 mg/dL (74-99); Lipase 62 U/L (23-300); Non-African American GFR(CKD) >90 (>60 ml/min/1.73 sqM); Potassium 4.4 mmol/L (3.5-5.1); Sodium 137 mmol/L (137-145); Total Bilirubin 0.6 mg/dL (0.2-1.3); Total Protein 7.6 g/dL (6.3-8.2)
[2022-11-09 12:14] LABS: Basophils % (A) 0 %; Eosinophils # (A) 0.1 k/uL (0-0.7); Eosinophils % (A) 1 %; HCT 41.6 % (34.0-46.0); HGB 13.9 gm/dL (11.4-16.0); Lymphocytes # (A) 2.1 k/uL (1.0-4.8); Lymphocytes % (A) 27 %; MCH 28.8 pg (25.0-35.0); MCHC 33.5 g/dL (31.0-37.0); MCV 85.8 fL (80.0-100.0); Mean Platelet Volume 13.7; Monocytes # (A) 0.3 k/uL (0-1.0); Monocytes % (A) 4 %; Neutrophils % (A) 65 %; RBC 4.85 m/uL (3.80-5.40); RDW 13.2 % (11.5-15.5); WBC 7.7 k/uL (3.8-10.6)
[2022-11-09] MEDS ORDERED: ONDANSETRON 4 MG/2 ML VIAL IVP STA (12:51)
[2022-11-09 13:25] LABS: Large Platelets Present
[2022-11-09 13:26] LABS: Platelet Count 116 k/uL (150-450)
[2022-11-09 13:30] LABS: Appearance,Urine Cloudy (Clear); Bacteria,Urine Occasional /hpf; Bilirubin,Urine Negative (Negative); Blood,Urine Negative (Negative); Color,Urine Yellow; Glucose,Urine (UA) Negative (Negative); Ketones,Urine 1+ (Negative); Leukocyte Esterase,Urine Large (Negative); Mucus,Urine Many /hpf; Nitrite,Urine Negative (Negative); Protein,Urine Trace (Negative); RBC,Urine 7 /hpf (0-5); Squamous Epithelial Cell,Urine 3 /hpf (0-4); Urobilinogen,Urine <2.0 mg/dL (<2.0); WBC,Urine 4 /hpf (0-5)
[2022-11-09 13:32] LABS: HCG,Quantitative Serum 79439.9 mIU/mL
[2022-11-09 14:12] VITALS: BP 107/55; PULSE 74; RESP 18; TEMP 98.1
== END 2022-11-09 14:05 | disposition home or self-care (01) ==
LOC: EC 10:09
DX: O21.9 Vomiting of pregnancy, unspecified (principal); O26.891 Other specified pregnancy related conditions, first trimester; R51.9 Headache, unspecified; Z20.822 Contact with and (suspected) exposure to COVID-19; Z3A.01 Less than 8 weeks gestation of pregnancy; Z88.0 Allergy status to penicillin
CPT/HCPCS: 36415; 86900; 86901; 80053; 82150; 83690; 85025; 81001; 84702; 87636; 99284; 96365; 96367; 96375 ×4; J1200; J3415; J2765; J2405; J0131

== ENCOUNTER 2023-04-04 11:11 | Outpatient (CLI) | payer BC ==
[2023-04-04 13:49] VITALS: BP 128/65; PULSE 97; RESP 16; TEMP 98.2
--- NOTE | 2023-05-02 10:19 | P.MSEPDOC ---
Presenting Problems - Arrival Data Date of Arrival on Unit: 04/04/23 Time of Arrival on Unit: 11:11 Mode of Transport: Ambulatory - Complaint OB-Reason for Admission/Chief Complaint: Vaginal Bleeding Comment: dark red vaginal bleeding noted after intercourse and straining to have bowel movement, denies contractions/cramping, abd soft and non tender Medical History - Information : 2 Para: 1 Term: 1 : 0 Abortions: Spontaneous or Elective: 0 Number of Living Children: 1 - Gestational Age Gestational Age by ALPHONSE (wks/days): 27 Weeks and 3 Days Review of Systems - Review of Systems Constitutional: No problems Breast: No problems ENT: No problems Cardiovascular: No problems Respiratory: No problems Gastrointestinal: No problems Genitourinary: No problems Musculoskeletal: No problems Neurological: No problems Skin: No problems Vital Signs - Temperature Temperature: 98.2 F Temperature Source: Temporal Artery Scan - Pulse Right Brachial Pulse Rate: 97 Pulse Assessment Method: Automatic Cuff - Respirations Respiratory Rate: 16 Oxygen Delivery Method: Room Air O2 Sat by Pulse Oximetry: 98 - Blood Pressure Right Arm Blood Pressure: 128/65 Blood Pressure Mean: 86 Blood Pressure Source: Automatic Cuff Medical Screen Scoring - Cervical Exam Dilation (cm): 0 Effacement (%): 0 - Uterine Contractions Intensity: Absent - Assessment - Baby A Baseline FHR: 145 Heart Rate - NICHD Category: Category I (Normal) Physician Notification - Physician Notified Physician Notified Date: 04/04/23 Physician Notified Time: 13:15 Physician: Юлия Shelley New Order Received: Yes (dc home) - Notification Comment Comment: continued to monitor pt for an hour, no further bleeding noted at this time, pt ok to dc home and will call office tomorrow for follow up appt Maternal Triage Index - Stat/Priority 1 Stat Priority 1: No - Urgent/Priority 2 Urgent Priority 2: Yes Provider Notified: Юлия Shelley Provider Notified Time: 11:42 Criteria Met for Priority 2: sterile spec performed followed by cervical exam, small amt of dark red blood noted with exam, no pooling or clots noted, pt stated bleeding had slowed down while in triage than what she was experiencing prior to arriving Disposition - Disposition OB Disposition: Discharge to home, Written follow up instructions reviewed Discharge Date: 04/04/23 Discharge Time: 13:30 I agree with the RN Medical Screening Exam: Yes Case reviewed; plan agreed upon as documented in EMR&OBIX.: Yes Diagnosis: vaginal bleeding in pregancy
== END 2023-04-04 13:30 | disposition home or self-care (01) ==
LOC: FBPOP 11:11
PROVIDERS: ATTEND Obstetrics & Gynecology
DX: O20.9 Hemorrhage in early pregnancy, unspecified (principal); Z3A.27 27 weeks gestation of pregnancy; Z88.0 Allergy status to penicillin
CPT/HCPCS: 99213

== ENCOUNTER 2023-06-13 11:00 | Outpatient (CLI) | payer BC ==
[2023-06-13 12:43] VITALS: BP 123/66; PULSE 97; RESP 16; TEMP 97.4
--- NOTE | 2023-06-26 11:00 | P.MSEPDOC ---
Presenting Problems - Arrival Data Date of Arrival on Unit: 06/13/23 Time of Arrival on Unit: 11:00 Mode of Transport: Ambulatory - Complaint OB-Reason for Admission/Chief Complaint: Other Comment: racing heartrate, SOB, hot/flushed Medical History - Information : 2 Para: 1 Term: 1 : 0 Abortions: Spontaneous or Elective: 0 Number of Living Children: 1 - Gestational Age Gestational Age by ALPHONSE (wks/days): 37 Weeks and 3 Days Review of Systems - Review of Systems Constitutional: No problems Breast: No problems ENT: No problems Cardiovascular: No problems Respiratory: No problems Gastrointestinal: No problems Genitourinary: No problems Musculoskeletal: No problems Neurological: No problems Skin: No problems Vital Signs - Temperature Temperature: 97.4 F Temperature Source: Temporal Artery Scan - Pulse Pulse Oximetery Pulse Rate: 97 Pulse Assessment Method: Pulse Oximetry - Respirations Respiratory Rate: 16 Oxygen Delivery Method: Room Air O2 Sat by Pulse Oximetry: 98 - Blood Pressure Right Arm Blood Pressure: 123/66 Blood Pressure Mean: 85 Blood Pressure Source: Automatic Cuff Medical Screen Scoring - Assessment - Baby A Baseline FHR: 135 Heart Rate - NICHD Category: Category I (Normal) NST: Reactive Physician Notification - Physician Notified Physician Notified Date: 06/13/23 Physician Notified Time: 12:06 Physician: Nico Carter Order Received: Yes - Notification Comment Comment: Dr. Carter called at office, report given on pt's complaints of racing heart rate, SOB, and feeling hot/flushed. HR ranges from 80s-qmuq01y, BP 123/66, NST reactive. Pt has no complaints and has no SOB currently. Orders to discharge pt home with instructions to follow up in ER if she experiences SOB and/or chest pain. Maternal Triage Index - Maternal Triage Index Presenting for scheduled procedure w/no complaint: No - Stat/Priority 1 Stat Priority 1: No - Urgent/Priority 2 Urgent Priority 2: No - Prompt/Priority 3 Prompt Priority 3: No - Non-Urgent/Priority 4 Non-Urgent Priority 4: Yes Criteria Met for Priority 4: racing heart rate, SOB on occassion, hot/flushed feeling Disposition - Disposition OB Disposition: Discharge to home Discharge Date: 06/13/23 Discharge Time: 12:20 I agree with the RN Medical Screening Exam: Yes Physician's MSE Comment: I have neither seen nor examined the patient. Case reviewed; plan agreed upon as documented in EMR&OBIX.: Yes Diagnosis: MATERNAL CARE FOR PROBLEM, UNSP, THIRD TRIMESTER, UNSP
== END 2023-06-13 12:20 | disposition home or self-care (01) ==
LOC: FBPOP 11:00
PROVIDERS: ATTEND Obstetrics & Gynecology
DX: O99.891 Other specified diseases and conditions complicating pregnancy (principal); Z3A.37 37 weeks gestation of pregnancy; Z88.0 Allergy status to penicillin; R00.0 Tachycardia, unspecified; R06.02 Shortness of breath
CPT/HCPCS: 59025; 99213

== ENCOUNTER 2023-06-24 06:08 | Inpatient (IN) | payer BC, OTHER ==
[2023-06-24] MEDS ORDERED: OXYTOCIN 10 UNIT/ML 1 ML VIAL IM PRN ×2 (06:21→09:41)
[2023-06-24] MEDS ORDERED: CARBOPROST TROMETHAMINE 250 MCG/ML 1 ML AMP IM PRN ×2 (06:21→09:41)
[2023-06-24] MEDS ORDERED: miSOPROStoL 200 MCG TAB PO PRN ×2 (06:21→09:41)
[2023-06-24] MEDS ORDERED: LIDOCAINE 0.5% (PF) 5 MG/ML (50 ML SDV) SQ PRN (06:21)
[2023-06-24] MEDS ORDERED: TERBUTALINE 1 MG/ML VIAL SQ PRN (06:21)
[2023-06-24] MEDS ORDERED: TRANEXAMIC 1,000 MG/100ML-NACL 1,000 MG in EMPTY BAG 1 BAG IV PRN ×2 (06:21→09:41)
[2023-06-24] MEDS ORDERED: METHYLERGONOVINE 0.2 MG/ML 1 ML AMP IM PRN ×2 (06:21→09:41)
[2023-06-24] MEDS ORDERED: OXYTOCIN 30 UNITS/500 ML NS 30 UNIT in SALINE 1 500ML.BAG IV SCH ×2 (06:30→11:15)
[2023-06-24] MEDS: LACTATED RINGERS 1,000 ML IV SCH ×3 (06:39→15:32)
[2023-06-24] MEDS ORDERED: ceFAZolin 3 GM in SODIUM CHLORIDE 0.9% 100 ML IVPB ONE ×3 (06:45→09:41)
[2023-06-24 06:54] LABS: Basophils % (A) 0 %; Eosinophils # (A) 0.1 k/uL (0-0.7); Eosinophils % (A) 1 %; HCT 30.2 % (34.0-46.0); HGB 9.9 gm/dL (11.4-16.0); Hypochromasia Slight; Lymphocytes # (A) 1.7 k/uL (1.0-4.8); Lymphocytes % (A) 20 %; MCH 26.4 pg (25.0-35.0); MCV 80.1 fL (80.0-100.0); Mean Platelet Volume 11.6; Monocytes # (A) 0.4 k/uL (0-1.0); Monocytes % (A) 4 %; Neutrophils % (A) 71 %; Platelet Count 151 k/uL (150-450); Poikilocytosis Slight; RBC 3.77 m/uL (3.80-5.40); RDW 14.7 % (11.5-15.5); WBC 8.4 k/uL (3.8-10.6)
[2023-06-24] MEDS ORDERED: LACTATED RINGERS 1,000 ML IV ONE (09:41)
[2023-06-24] MEDS ORDERED: CITRIC ACID-SODIUM CITRATE 15 ML CUP PO ONE (09:41)
--- NOTE | 2023-06-24 10:03 | P.HPOB ---
History of Present Illness H&P Date: 06/24/23 Chief Complaint: 39-0/7 weeks, large for gestational age The patient is a 33-year-old 2 para 1001 admitted at 39-0/7 weeks as established by last menstrual period and confirmed by seven-week ultrasound. She is admitted initially for induction of labor and an elective fashion secondary to a large for gestational age fetus measuring greater than 99th percentile at 38 weeks. After further discussion with the patient and understanding that the estimated weight one week ago was approximate 4300 g, the patient was offered a choice of continued induction versus primary section. She has now opted for primary low-transverse section. Her was otherwise essentially uncomplicated aside from the large for gestational age finding and polyhydramnios. testing has been reassuring. She is also known to be group B strep positive and has received 1 dose of antibiotics. On labor and delivery, all signs reassuring with a category 1 heart rate tracing. Obstetrical history: 2 para 1001 with 1 previous normal spontaneous vaginal delivery complicated by shoulder dystocia for an 8 lbs. 11 oz. baby. Current statistics are listed in history present illness. EDC of 07/01/2023 was established by last menstrual period and confirmed by seven-week ultrasound. Laboratory workup demonstrates a blood type of O+ with a negative antibody screen. Rubella status is immune. The remainder of the laboratory workup was within normal limits. Early Glucola and second trimester Glucola were within normal limits. Group B strep status is positive. Gynecologic history: Unremarkable with no history of any infections to include STDs. Review of Systems Review of systems is confined to history of present illness. Past Medical History Past Medical History: No Reported History Additional Past Medical History / Comment(s): diverticulitis, UTI, nephrolithiasis-pt passed on her own. History of Any Multi-Drug Resistant Organisms: MRSA Date of last positivie culture/infection: 2008 MDRO Source:: lower left leg Past Surgical History: Appendectomy, Cholecystectomy Past Anesthesia/Blood Transfusion Reactions: No Reported Reaction, Motion Sickness Past Psychological History: No Psychological Hx Reported Additional Psychological History / Comment(s): Pt resides with her spouse and 1 year old child Smoking Status: Never smoker Past Alcohol Use History: Occasional Past Drug Use History: None Reported - Past Family History Father Family Medical History: Diabetes Mellitus Mother Family Medical History: Hypertension Medications and Allergies Home Medications Medication Instructions Recorded Confirmed Type Bll-Nfeh-Ecskk Acid 1 cap PO HS 11/09/22 06/24/23 History [-U Capsule (formulary)] Iron 18 mg PO DAILY 06/13/23 06/24/23 History Allergies Allergy/AdvReac Type Severity Reaction Status Date / Time amoxicillin Allergy Rash/Hives Verified 06/24/23 06:20 Penicillins Allergy Rash/Hives Verified 06/24/23 06:20 Exam Vital Signs Temp Pulse Resp BP Pulse Ox 06/24/23 06:19 97.5 F L 93 16 133/65 97 Intake and Output 06/23/23 06/24/23 06/24/23 22:59 06:59 14:59 Other: Weight 130.181 kg In general, this is a well-developed, moderately obese white female in no acute distress. Her heart has a regular rhythm and rate without murmur. Her lungs clear to auscultation bilaterally in all laurent. Her abdomen is gravid, nondistended, has normal active bowel sounds, soft, nontender, without any palpable masses aside from uterine fundus. Her extremities are without any cyanosis, clubbing, or edema and are nontender to palpation bilaterally. Digital cervical examination is deferred. Results Result Diagrams: 06/24/23 06:35 Abnormal Lab Results - Last 24 Hours (Table) 06/24/23 Range/Units 06:35 RBC 3.77 L (3.80-5.40) m/uL Hgb 9.9 L (11.4-16.0) gm/dL Hct 30.2 L (34.0-46.0) % Assessment and Plan (1) Term Current Visit: Yes Status: Acute Code(s): Z34.90 - ENCNTR FOR SUPRVSN OF NORMAL , UNSP, UNSP TRIMESTER SNOMED Code(s): 95286010 (2) macrosomia Current Visit: Yes Status: Acute Code(s): YQY1316 - SNOMED Code(s): 70124509 Plan: As noted in history present illness, after discussion regarding options for delivery and the potential concerns for a larger than 4500 g fetus, the decision was made to proceed with primary low-transverse section. The risks and, occasions of been thoroughly discussed and she has understood and agreed to proceed.
[2023-06-24] MEDS ORDERED: ceFAZolin 1,000 MG VIAL ONE (10:13)
[2023-06-24] MEDS ORDERED: KETOROLAC 30 MG/ML 1 ML VIAL ONE (10:13)
[2023-06-24] MEDS ORDERED: OXYTOCIN 30 UNITS/500 ML NS BAG IV ONE (10:13)
[2023-06-24] MEDS ORDERED: PHENYLEPHRINE-0.9% NACL SYG 1,000 MCG/10 ML SYRINGE ONE (10:13)
[2023-06-24] MEDS ORDERED: SODIUM CHLORIDE 0.9% 100 ML BAG ONE (10:13)
[2023-06-24] MEDS ORDERED: MORPHINE SULFATE (PF) 0.3 MG/0.3 ML SYR ONE (10:13)
[2023-06-24] MEDS ORDERED: ePHEDrine 50 MG/ML 1 ML VIAL ONE (10:13)
[2023-06-24] MEDS ORDERED: ONDANSETRON 4 MG/2 ML VIAL ONE (10:13)
[2023-06-24] MEDS ORDERED: NALBUPHINE 10 MG/ML (10 ML MDV) ONE (10:13)
[2023-06-24] MEDS ORDERED: SIMETHICONE 80 MG CHEWABLE PO PRN (11:12)
[2023-06-24] MEDS ORDERED: diphenhydrAMINE 50 MG CAP PO PRN (11:12)
[2023-06-24] MEDS ORDERED: ZOLPIDEM 5 MG TAB PO PRN (11:12)
[2023-06-24] MEDS ORDERED: LANOLIN CREAM 5 GM TUBE TOPICAL PRN (11:12)
[2023-06-24] MEDS ORDERED: diphenhydrAMINE 25 MG CAP PO PRN (11:12)
[2023-06-24] MEDS ORDERED: ONDANSETRON 4 MG/2 ML VIAL IVP PRN (11:12)
[2023-06-24] MEDS ORDERED: diphenhydrAMINE 50 MG/ML 1 ML VIAL IVP PRN ×2 (11:12)
[2023-06-24] MEDS ORDERED: NALOXONE 0.4 MG/ML 1 ML VIAL IV PRN (11:12)
--- NOTE | 2023-06-24 11:20 | P.OP ---
Date of Procedure: 06/24/23 Preoperative Diagnosis: #1. 39-0/7 weeks intrauterine #2. macrosomia, estimated weight greater than 4500 g #3. Previous shoulder dystocia Postoperative Diagnosis: Same Procedure(s) Performed: #1. Primary low-transverse section Anesthesia: spinal Surgeon: Nico Carter Director Of Outpatient Services #1: Robyn Thompson Estimated Blood Loss (ml): 389 IV fluids (ml): 1,000 Urine output (ml): 200 Pathology: none sent Condition: stable Disposition: floor Operative Findings: See dictated H&P for decisions leading to primary section. The patient was taken to the operating room where she was delivered of a viable 9 lbs. 8 oz. baby boy with Apgars of 9 at 1 minute and 9 at 5 minutes delivered in the occiput anterior position. There was a loose nuchal cord 1. The placenta was delivered manually, intact, and grossly normal with a grossly normal three- vessel cord. The uterus, tubes, and ovaries were entirely normal to inspection. Description of Procedure: The patient was prepped and draped in usual fashion after spinal anesthesia was administered by the anesthesiologist. A Pfannenstiel incision was made and extended into the abdominal cavity without difficulty. The bladder peritoneum was left intact as it was distal to the intended site of incision. A 2 cm incision was made in the transverse plane of the lower uterine segment to enter the uterus at which time clear fluid was noted. The incision was extended in both directions using the bandage scissors. The head was delivered up and through the incision where the nose and mouth were thoroughly suctioned. Loose nuchal cord was reduced on the field. The remainder of the was delivered onto the field where the cord was doubly clamped, cut, and the passed resuscitative measures with weight and Apgars as noted above. A segment of cord was doubly clamped and cut and set aside should cord gases become necessary. The placenta was delivered manually and intact as noted above. The uterus was exteriorized and the interior cavity of the uterus swept of any remaining placental or membranous fragments. The margins of the uterine incision were grasped with Cook clamps and the incision closed in 2 layers. The first layer was a running locking stitch of 0 chromic catgut followed by a running imbricating layer of 0 chromic catgut. Hemostasis appeared to be excellent. The posterior cul-de-sac was suctioned using a guard followed by laparotomy sponge. Uterus was replaced within the abdominal cavity and the gutters were swept of any remaining blood, fluid, or clot. The incision was reexamined and found to be hemostatic. The parietal peritoneum was loosely reapproximated and layer of muscles examined and found to be hemostatic. The fascia was closed with a single running stitch of 0 Vicryl proceeding from margin to margin. The subcutaneous tissues were irrigated, made hemostatic with the Bovie, and reapproximated with a running stitch of 30 plain catgut. The skin was reapproximated with a running subcuticular stitch of 4-0 Vicryl followed by half-inch Steri-Strips placed with Mastisol. Quantitative blood loss for the case was 389 mL. There were no complications. All sponge, instrument, needle counts were correct. The patient tolerated the procedure well and proceeded to the recovery room in stable condition. Both mother and infant are resting comfortably in recovery.
[2023-06-24] MEDS: METOCLOPRAMIDE 5 MG/ML 2 ML VIAL IVP PRN ×2 (13:00→18:36)
[2023-06-24] MEDS: ACETAMINOPHEN TAB 500 MG TAB PO SCH ×2 (13:25→19:42)
[2023-06-24] MEDS: KETOROLAC 15 MG/ML 1 ML VIAL IVP PRN ×2 (15:32→22:24)
[2023-06-24] MEDS: SENNOSIDES-DOCUSATE SODIUM 1 EACH TAB PO SCH (19:42)
[2023-06-24] MEDS: IBUPROFEN 600 MG TAB PO SCH (22:22)
[2023-06-25] MEDS: ACETAMINOPHEN TAB 500 MG TAB PO SCH ×4 (01:16→20:08)
[2023-06-25] MEDS: IBUPROFEN 600 MG TAB PO SCH ×5 (01:17→22:58)
[2023-06-25] MEDS: KETOROLAC 15 MG/ML 1 ML VIAL IVP PRN (04:17)
[2023-06-25 05:58] LABS: Basophils % (A) 0 %; Eosinophils % (A) 0 %; HCT 25.3 % (34.0-46.0); HGB 8.8 gm/dL (11.4-16.0); Hypochromasia Slight; Lymphocytes # (A) 1.2 k/uL (1.0-4.8); Lymphocytes % (A) 13 %; MCH 28.1 pg (25.0-35.0); MCHC 34.9 g/dL (31.0-37.0); MCV 80.5 fL (80.0-100.0); Mean Platelet Volume 12.5; Monocytes # (A) 0.4 k/uL (0-1.0); Monocytes % (A) 4 %; Neutrophils # (A) 6.8 k/uL (1.3-7.7); Neutrophils % (A) 79 %; Platelet Count 111 k/uL (150-450); Poikilocytosis Slight; RBC 3.15 m/uL (3.80-5.40); RDW 14.8 % (11.5-15.5); WBC 8.6 k/uL (3.8-10.6)
[2023-06-25] MEDS: SENNOSIDES-DOCUSATE SODIUM 1 EACH TAB PO SCH ×2 (07:23→20:08)
--- NOTE | 2023-06-25 07:24 | P.PN ---
Progress Note - Text Progress Note Date: 06/25/23 Patient doing well. Ambulating w/o weakness or paresthesia. Denies current headache. Mild pruritis. Pain controlled. Back - spinal site c/d A/P POD #1 s/p w/ spinal duramorph - doing well
[2023-06-25] MEDS: LACTATED RINGERS 1,000 ML IV SCH (09:54)
--- NOTE | 2023-06-25 10:52 | P.PNOBGPC ---
Subjective - Subjective Patient reports: Reports appetite normal, Reports voiding normally, Reports pain well controlled, Reports ambulating normally : doing well Objective - Vital Signs Latest vital signs: Vital Signs Temp Pulse Resp BP Pulse Ox 06/25/23 08:00 98.3 F 78 16 104/69 97 06/25/23 04:00 97.6 F 86 16 104/66 06/24/23 23:09 98.4 F 80 16 115/70 06/24/23 20:00 98.7 F 94 16 116/68 06/24/23 15:50 97.7 F 87 16 104/64 06/24/23 13:13 97.6 F 97 16 120/58 99 06/24/23 12:43 83 16 115/56 98 06/24/23 12:13 86 16 111/54 99 06/24/23 11:58 102 H 17 110/53 99 06/24/23 11:43 89 17 118/56 98 06/24/23 11:28 94 17 119/55 98 06/24/23 11:13 97.2 F L 94 17 118/58 98 Intake and Output 06/24/23 06/25/23 06/25/23 22:59 06:59 14:59 Intake Total 1000 400 Output Total 300 500 400 Balance 700 -500 0 Intake: IV 1000 400 Output: Urine 300 500 400 Straight 500 Uretheral (Mnotana) 300 Other: Voiding Method Indwelling Catheter # Voids 0 0 # Emeses 1 - Exam Extremities: Present: normal Abdomen: Present: normal appearance, soft. Absent: distention, tenderness Incision: Present: normal, dry, intact Uterus: Present: normal, firm (Uterine fundus is tonic and appropriately tender around the umbilicus.) - Labs Labs: Abnormal Lab Results - Last 24 Hours (Table) 06/25/23 Range/Units 05:46 RBC 3.15 L (3.80-5.40) m/uL Hgb 8.8 L (11.4-16.0) gm/dL Hct 25.3 L (34.0-46.0) % Plt Count 111 L (150-450) k/uL Assessment and Plan (1) Term Current Visit: Yes Status: Acute Code(s): Z34.90 - ENCNTR FOR SUPRVSN OF NORMAL , UNSP, UNSP TRIMESTER SNOMED Code(s): 58098522 (2) macrosomia Current Visit: Yes Status: Acute Code(s): GAB0800 - SNOMED Code(s): 62543146 (3) S/P section Current Visit: Yes Status: Acute Code(s): Z98.891 - HISTORY OF UTERINE SCAR FROM PREVIOUS SURGERY SNOMED Code(s): 772155528 Plan: Continue routine and postoperative care. I would anticipate discharge home tomorrow pending no complications.
[2023-06-26] MEDS: ACETAMINOPHEN TAB 500 MG TAB PO SCH ×2 (02:42→09:02)
[2023-06-26] MEDS: IBUPROFEN 600 MG TAB PO SCH ×2 (05:02→11:17)
[2023-06-26] MEDS: SENNOSIDES-DOCUSATE SODIUM 1 EACH TAB PO SCH (08:05)
[2023-06-26 08:34] VITALS: BP 122/72; PULSE 84; RESP 17; TEMP 97.7
--- NOTE | 2023-06-26 10:26 | P.DS ---
Providers Date of admission: 06/24/23 06:08 Expected date of discharge: 06/26/23 Attending physician: Nico Carter Primary care physician: Stated None - Discharge Diagnosis(es) (1) Term Current Visit: Yes Status: Acute (2) macrosomia Current Visit: Yes Status: Acute (3) S/P section Current Visit: Yes Status: Acute Hospital Course: The patient is a 33-year-old 2 para 1001 admitted at 39-0/7 weeks initially for elective induction for suspected macrosomia. Her was essentially uncomplicated and group B strep status was positive. She was initially admitted and had Pitocin augmentation started. I then had a discussion with her regarding her previous at which time she had a moderate shoulder dystocia for an 8 lbs. 11 oz. baby and the suspected devonte ght at 1 week prior to admission for this baby was approximately 4300 g. When given the options, the patient opted to proceed with primary low-transverse section. The induction was abandoned and the patient was taken the operating room where she was delivered of a viable 9 lbs. 8 oz. baby boy with Apgars of 9 at 1 minute and 9 at 5 minutes. Her and postoperative courses were unremarkable with vital signs remaining stable and her temperature was afebrile throughout. She was deemed stable for discharge on and postoperative day #2 and was discharged home to follow-up in the office in 2 weeks for an incision check and 6 weeks routinely. Discharge instructions included calling for any significantly increased bleeding or foul-smelling lochia, significantly increased fever or abdominal pain, perineal complaints, breast complaints, incisional complaints, or anything else that concerned her. She was additionally instructed to have nothing in the vagina for at least 6 weeks time to include intercourse. She was to do no heavy lifting over the same period of time and to abstain from driving until off of all pain medications or 2 weeks' time, whichever came first. She understood her instructions and agrees to follow up as noted above. Discharge medications included kltx-tav-hstmmns analgesic pain medications as well as a prescription for Tylenol 3, 1-2 by mouth every 6 hours when necessary pain, #20 dispensed with no refills. Maternal blood type is O+ and rubella status is immune. Discharge hemoglobin and hematocrit were 8.8 and 25.3 respectively. She was requested to use iron sulfate over the next month regain her hemoglobin. Procedures: #1. Pitocin induction, abandoned #2. Antibiotic prophylaxis #3. Primary low- transverse section Patient Condition at Discharge: Stable Plan - Discharge Summary New Discharge Prescriptions: No Action Ngf-Rfgl-Kamrz Acid [-U Capsule (formulary)] 1 cap PO HS Iron 18 mg PO DAILY Discharge Medication List Fxt-Kqce-Rmnig Acid [-U Capsule (formulary)] 1 cap PO HS 11/09/22 [History] Iron 18 mg PO DAILY 06/13/23 [History] Follow up Appointment(s)/Referral(s): Nico Carter MD [STAFF PHYSICIAN] - 2 Weeks Discharge Disposition: HOME SELF-CARE
== END 2023-06-26 11:40 | disposition home or self-care (01) | DRG 788 ==
LOC: 4FBP 06:08
PROVIDERS: ADMIT Obstetrics & Gynecology; ATTEND Obstetrics & Gynecology
PROC: 10D00Z1 Extraction of Products of Conception, Low, Open Approach (ICD-10-PCS; principal; 2023-06-24 10:00)
DX: O36.63X0 Maternal care for excessive fetal growth, third trimester, not applicable or unspecified (principal); O69.81X0 Labor and delivery complicated by cord around neck, without compression, not applicable or unspecified; O40.3XX0 Polyhydramnios, third trimester, not applicable or unspecified; O99.824 Streptococcus B carrier state complicating childbirth; L29.9 Pruritus, unspecified; Z37.0 Single live birth; Z3A.39 39 weeks gestation of pregnancy; Z82.49 Family history of ischemic heart disease and other diseases of the circulatory system; Z83.3 Family history of diabetes mellitus; Z87.442 Personal history of urinary calculi; Z87.440 Personal history of urinary (tract) infections; Z86.14 Personal history of Methicillin resistant Staphylococcus aureus infection; Z53.09 Procedure and treatment not carried out because of other contraindication; Z28.310 Unvaccinated for COVID-19; Z28.21 Immunization not carried out because of patient refusal
CPT/HCPCS: 85025; 86850; 86900; 86901

== ENCOUNTER 2024-06-17 10:12 | Outpatient (CLI) | payer BC ==
[2024-06-17 11:38] VITALS: BP 114/56; PULSE 106; RESP 16; TEMP 96.7
--- NOTE | 2024-07-22 11:46 | P.MSEPDOC ---
Presenting Problems - Arrival Data Date of Arrival on Unit: 06/17/24 Time of Arrival on Unit: 10:12 Mode of Transport: Ambulatory - Complaint OB-Reason for Admission/Chief Complaint: Pain Comment: LUQ pain when coughing Medical History - Information : 3 Para: 2 Term: 2 : 0 Abortions: Spontaneous or Elective: 0 Number of Living Children: 2 - Gestational Age Gestational Age by ALPHONSE (wks/days): 33 Weeks and 3 Days - History Complications: Prior Review of Systems - Review of Systems Constitutional: No problems Breast: No problems ENT: No problems Cardiovascular: No problems Respiratory: No problems Gastrointestinal: No problems Genitourinary: No problems Musculoskeletal: No problems Neurological: No problems Skin: No problems Vital Signs - Temperature Temperature: 96.7 F Temperature Source: Temporal Artery Scan - Pulse Right Sitting Brachial Pulse Rate: 106 Pulse Assessment Method: Automatic Cuff - Respirations Respiratory Rate: 16 Oxygen Delivery Method: Room Air O2 Sat by Pulse Oximetry: 100 - Blood Pressure Right Arm Sitting Blood Pressure: 114/56 Blood Pressure Mean: 75 Blood Pressure Source: Automatic Cuff Medical Screen Scoring - Uterine Contractions Frequency From (mins): 0 Frequency To (mins): 0 - Assessment - Baby A Baseline FHR: 125 Heart Rate - NICHD Category: Category I (Normal) NST: Reactive Physician Notification - Physician Notified Physician Notified Date: 06/17/24 Physician Notified Time: 10:46 Physician: Nico Carter Order Received: Yes - Notification Comment Comment: reactive nst, dc with instructions for comfort measures Maternal Triage Index - Maternal Triage Index Presenting for scheduled procedure w/no complaint: No - Stat/Priority 1 Stat Priority 1: No - Urgent/Priority 2 Urgent Priority 2: No - Prompt/Priority 3 Prompt Priority 3: No - Non-Urgent/Priority 4 Non-Urgent Priority 4: Yes Criteria Met for Priority 4: pain Disposition - Disposition OB Disposition: Discharge to home Discharge Date: 06/17/24 Discharge Time: 11:22 I agree with the RN Medical Screening Exam: Yes Physician's MSE Comment: I have neither seen nor examined the patient. Case reviewed; plan agreed upon as documented in EMR&OBIX.: Yes Diagnosis: RELATED CONDITIONS, UNSPECIFIED, THIRD TRIMESTER
== END 2024-06-17 11:22 | disposition home or self-care (01) ==
LOC: FBPOP 10:12
PROVIDERS: ATTEND Obstetrics & Gynecology
DX: O26.893 Other specified pregnancy related conditions, third trimester (principal); R10.11 Right upper quadrant pain; R05.9 Cough, unspecified; Z3A.33 33 weeks gestation of pregnancy; Z88.0 Allergy status to penicillin
CPT/HCPCS: 59025; 99213

== ENCOUNTER 2024-07-13 09:54 | Inpatient (IN) | payer BC, MEDICAID, OTHER ==
[2024-07-11 16:01] VITALS: BMI 50.9
[2024-07-13] MEDS ORDERED: TRANEXAMIC 1,000 MG/100ML-NACL 1,000 MG in EMPTY BAG 1 BAG IV PRN (10:15)
[2024-07-13] MEDS ORDERED: miSOPROStoL 200 MCG TAB PO PRN (10:15)
[2024-07-13] MEDS ORDERED: OXYTOCIN 10 UNIT/ML 1 ML VIAL IM PRN (10:15)
[2024-07-13] MEDS ORDERED: CARBOPROST TROMETHAMINE 250 MCG/ML 1 ML AMP IM PRN (10:15)
[2024-07-13] MEDS ORDERED: METHYLERGONOVINE 0.2 MG/ML 1 ML AMP IM PRN (10:15)
[2024-07-13 10:45] LABS: Anisocytosis Slight; Basophils % (A) 0 %; Eosinophils # (A) 0.1 k/uL (0-0.7); Eosinophils % (A) 1 %; HGB 10.9 gm/dL (11.4-16.0); Hypochromasia Slight; Lymphocytes # (A) 1.7 k/uL (1.0-4.8); Lymphocytes % (A) 21 %; MCH 27.1 pg (25.0-35.0); MCV 84.6 fL (80.0-100.0); Mean Platelet Volume 10.9; Monocytes # (A) 0.3 k/uL (0-1.0); Monocytes % (A) 4 %; Neutrophils # (A) 5.7 k/uL (1.3-7.7); Neutrophils % (A) 71 %; Platelet Count 172 k/uL (150-450); RBC 4.02 m/uL (3.80-5.40)
[2024-07-13] MEDS: CITRIC ACID-SODIUM CITRATE 15 ML CUP PO ONE (11:27)
[2024-07-13] MEDS: ceFAZolin 3 GM in SODIUM CHLORIDE 0.9% 100 ML IVPB ONE (11:27)
--- NOTE | 2024-07-13 11:54 | P.HPOB ---
History of Present Illness H&P Date: 07/13/24 Chief Complaint: IUP at 37 1/7 weeks, polyhydramnios, h/o c/s, short IC This is a 34-year-old 3 para 2-0-0-2 that presents to labor and delivery at 37 and 1 sevenths weeks for scheduled repeat section with bilateral salpingectomy. Patient has been receiving routine care which has been uncomplicated. Patient has known diagnosis of polyhydramnios, last amniotic fluid index of 32-35. Patient does have a short interval, history of macrosomia with shoulder dystocia with her first delivery. First baby 811, second baby primary for LGA 9 pounds 8 ounces and requested repeat section with bilateral salpingectomy for this . Patient notes good movement denies vaginal bleeding or loss of fluid. On blood work this patient is a blood type of O+, rubella status immune, hepatitis B surface antigen negative, HIV negative, RPR is nonreactive. Review of Systems Constitutional: Denies chills, Denies fatigue, Denies fever Ears, nose, mouth and throat: Denies headache Cardiovascular: Reports leg edema Respiratory: Denies dyspnea Gastrointestinal: Denies nausea, Denies vomiting Genitourinary: Reports Past Medical History Past Medical History: No Reported History Additional Past Medical History / Comment(s): diverticulitis, UTI, nephrolithiasis-pt passed on her own. CURRENTLY ON ANTIBIOTICS FOR DOUBLE EAR INFECTION AND SINUS INFECTION History of Any Multi-Drug Resistant Organisms: MRSA Date of last positivie culture/infection: 2008 MDRO Source:: lower left leg Past Surgical History: Appendectomy, Section, Cholecystectomy Past Anesthesia/Blood Transfusion Reactions: No Reported Reaction, Motion Sickness Past Psychological History: Anxiety Additional Psychological History / Comment(s): Pt resides with her spouse and 1 year old child Smoking Status: Never smoker Past Alcohol Use History: Occasional Additional Past Alcohol Use History / Comment(s): NONE DURING Past Drug Use History: None Reported - Past Family History Father Family Medical History: Diabetes Mellitus Mother Family Medical History: Hypertension Medications and Allergies Home Medications Medication Instructions Recorded Confirmed Type Wxu-Wnsa-Qlfyx Acid 1 cap PO HS 11/09/22 07/13/24 History [-U Capsule (formulary)] Sertraline [Zoloft] 25 mg PO HS 06/17/24 07/13/24 History Cefdinir [Omnicef] 300 mg PO Q12HR 07/11/24 07/13/24 History Cetirizine HCl [Zyrtec] 10 mg PO DAILY 07/11/24 07/13/24 History Ferrous Sulfate [Feosol] 325 mg PO DAILY 07/11/24 07/13/24 History Fluticasone Nasal [place] [Flonase 1 spray EA NOSTRIL HS 07/11/24 07/13/24 History Nasal [place]] Allergies Allergy/AdvReac Type Severity Reaction Status Date / Time amoxicillin Allergy Rash/Hives Verified 07/13/24 10:10 Penicillins Allergy Rash/Hives Verified 07/13/24 10:10 Exam Osteopathic Statement: *. No significant issues noted on an osteopathic structural exam other than those noted in the History and Physical/Consult. Vital Signs Temp Pulse Resp BP 07/13/24 10:18 96.4 F L 83 16 114/63 Intake and Output 07/12/24 07/13/24 07/13/24 22:59 06:59 14:59 Other: Weight 138.799 kg Targeted physical exam is performed this date General Is a well-nourished well- developed female in no acute distress, breathing is nonlabored, heart has a regular rate and rhythm, abdomen is gravid, heart tones noted to be category 1 and she is not marlys, cervical exam is deferred. Results Result Diagrams: 07/13/24 10:25 Abnormal Lab Results - Last 24 Hours (Table) 07/13/24 Range/Units 10:25 Hgb 10.9 L (11.4-16.0) gm/dL RDW 16.0 H (11.5-15.5) % Assessment and Plan (1) History of section Current Visit: Yes Status: Acute Code(s): Z98.891 - HISTORY OF UTERINE SCAR FROM PREVIOUS SURGERY SNOMED Code(s): 109491857 (2) Polyhydramnios Current Visit: No Status: Acute Code(s): O40.9XX0 - POLYHYDRAMNIOS, UNSP TRIMESTER, NOT APPLICABLE OR UNSP SNOMED Code(s): 55174640 (3) Term Current Visit: No Status: Acute Code(s): Z34.90 - ENCNTR FOR SUPRVSN OF NORMAL , UNSP, UNSP TRIMESTER SNOMED Code(s): 62179475 Plan: 34-year-old G3, P2 at 37 and 1 sevenths weeks that presents for repeat section with bilateral salpingectomy. Patient is counseled on need for section given to prior history of shoulder dystocia and sure in her conceptual period. Patient in addition has a known diagnosis of polyhydramnios. Patient states understanding and wishes to proceed. Risks of surgery were reviewed including but not limited to infection, bleeding, damage to bladder, bowel, ureteric injury. Patient states understanding. Anesthesia into see patient, will proceed with repeat section with tubal ligation.
[2024-07-13] MEDS: LACTATED RINGERS 1,000 ML BAG IV STA (12:06)
[2024-07-13] MEDS ORDERED: ONDANSETRON 4 MG/2 ML VIAL ONE (12:23)
[2024-07-13] MEDS ORDERED: NALBUPHINE (ANES) 10 MG/ML - 1 ML AMP ONE (12:23)
[2024-07-13] MEDS ORDERED: OXYTOCIN 30 UNITS/500 ML NS BAG IV ONE (12:23)
[2024-07-13] MEDS ORDERED: METOCLOPRAMIDE 5 MG/ML 2 ML VIAL ONE (12:23)
[2024-07-13] MEDS ORDERED: fentaNYL (PF) 50 MCG/ML 2 ML AMP ONE (12:23)
[2024-07-13] MEDS ORDERED: diphenhydrAMINE 50 MG/ML 1 ML VIAL ONE (12:23)
[2024-07-13] MEDS ORDERED: MORPHINE SULFATE (PF) 0.3 MG/0.3 ML SYR ONE (12:23)
[2024-07-13] MEDS ORDERED: PHENYLEPHRINE-0.9% NACL SYG 1,000 MCG/10 ML SYRINGE ONE (12:23)
[2024-07-13] MEDS ORDERED: DEXAMETHASONE SOD PHOSPHATE 4 MG/ML 1 ML VIAL ONE (12:23)
[2024-07-13] MEDS ORDERED: NALOXONE 0.4 MG/ML 1 ML VIAL IV PRN ×2 (12:58→13:41)
[2024-07-13] MEDS ORDERED: HYDROmorphone 0.5 MG/0.5 ML SYRINGE IVP PRN (12:58)
[2024-07-13] MEDS ORDERED: NALBUPHINE 10 MG/ML (10 ML MDV) IV PRN (12:58)
[2024-07-13] MEDS ORDERED: METOCLOPRAMIDE 5 MG/ML 2 ML VIAL IVP PRN ×2 (12:58→13:41)
[2024-07-13] MEDS ORDERED: KETOROLAC 15 MG/ML 1 ML VIAL IVP PRN (12:58)
--- NOTE | 2024-07-13 13:24 | P.OP ---
Date of Procedure: 07/13/24 Preoperative Diagnosis: IUP @ 37 1/7 weeks, of section x 1, polyhydramnios, short interconceptual period, desires permanent sterilization Postoperative Diagnosis: Same Procedure(s) Performed: Repeat section with bilateral salpingectomy Anesthesia: spinal Surgeon: Robyn Thompson [employer] Setup Worker #1: Ana Mcleod Estimated Blood Loss (ml): 600 IV fluids (ml): 2,000 Urine output (ml): 300 (Clear yellow) Pathology: none sent Condition: stable Disposition: observation Indications for Procedure: History of section x 1 desires repeat, polyhydramnios, short interconceptual period Operative Findings: Anterior adhesions appreciated. Rectus muscle defect, vacuum assist delivery of viable male at 1247, weight of 8 pounds 6 ounces, Apgars 8 and 9 at 1 and 5 minutes respectively Description of Procedure: Patient was taken back to the operating room where spinal anesthesia was found be adequate by the anesthesia department. She was prepped and draped in the normal sterile fashion in the dorsal supine position. A Pfannenstiel skin incision was made with a scalpel after the pannus retractor was placed on the abdomen and the pannus was retracted away from the operating field. The incision was extended to the fascia which was incised and extended laterally. The superior aspect 11 fashions incision was grasped with Rox clamps, elevated and the underlying rectus muscle was dissected off sharply. The inferior aspect of the fascial incision was then grasped with Rox clamps, elevated and the underlying rectus muscle was dissected off sharply. Rectus muscle defect was appreciated. The bladder blade was then inserted into the pelvis. Scalpel was used to make a hysterotomy incision, copious clear fluid was appreciated. was brought through the hysterotomy incision but was unable to be delivered therefore a vacuum was placed and with 1 pull the was delivered without difficulty. The vacuum was removed the umbilical cord was doubly clamped and cut spontaneous cry was noted and was handed off to waiting RN. Placenta was delivered manually and the uterus was cleared of all clots and debris. The uterus was then exteriorized and once again cleared of all clots and debris. The hysterotomy incision was closed with 0 Vicryl in a running locked fashion. The right fallopian tube was then grasped the mesosalpinx was transected with the LigaSure to the cornual region. Hemostasis was noted. This was then repeated on the opposite side. Hemostasis was noted. The hysterotomy incision was inspected and found to be hemostatic. Uterus was returned to the abdomen. A small amount bleeding was noted on the hysterotomy therefore Surgicel powder was placed along the hysterotomy incision. The gutters were cleared of all clots and debris prior to this. The peritoneum was loosely reapproximated. The rectus muscles were inspected and found to be hemostatic. The fascia was closed with 0 Vicryl in a running fashion from 1 lateral edge to the midline the other lateral edge of midline. The subcutaneous tissue was irrigated found to be hemostatic and closed with 3-0 Vicryl in a running fashion. The skin was closed with kaylynn. Sterile dressing was then applied. All counts were noted be correct x 2. Patient tolerated procedure well.
[2024-07-13] MEDS ORDERED: diphenhydrAMINE 25 MG CAP PO PRN (13:41)
[2024-07-13] MEDS ORDERED: OXYTOCIN 30 UNITS/500 ML NS 30 UNIT in SALINE 1 500ML.BAG IV SCH (13:41)
[2024-07-13] MEDS ORDERED: SIMETHICONE 80 MG CHEWABLE PO PRN (13:41)
[2024-07-13] MEDS ORDERED: diphenhydrAMINE 50 MG CAP PO PRN (13:41)
[2024-07-13] MEDS ORDERED: ONDANSETRON 4 MG/2 ML VIAL IVP PRN (13:41)
[2024-07-13] MEDS ORDERED: diphenhydrAMINE 50 MG/ML 1 ML VIAL IVP PRN ×2 (13:41)
[2024-07-13] MEDS ORDERED: ZOLPIDEM 5 MG TAB PO PRN (13:41)
[2024-07-13] MEDS: ACETAMINOPHEN IV (For NPO) 1,000 MG in EMPTY BAG 1 BAG IVPB ONE (13:57)
[2024-07-13] MEDS: ACETAMINOPHEN TAB 500 MG TAB PO SCH (16:10)
[2024-07-13] MEDS: IBUPROFEN IV 800 MG in SODIUM CHLORIDE 0.9% 250 ML IV ONE (17:31)
[2024-07-13] MEDS: IBUPROFEN 800 MG TAB PO SCH (17:41)
[2024-07-13] MEDS: ONDANSETRON 4 MG/2 ML VIAL IVP PRN (18:27)
[2024-07-13] MEDS: SENNOSIDES-DOCUSATE SODIUM 1 EACH TAB PO SCH (19:43)
[2024-07-13] MEDS: FLUTICASONE NASAL 50MCG/SPRAY 16GM BTL EA NOSTRIL SCH (19:43)
[2024-07-13] MEDS: PRENATAL VIT-IRON-FOLIC ACID 1 EACH TABLET PO SCH (19:44)
[2024-07-13] MEDS: methylPREDNISolone 4 MG TAB TAPER PO SCH (19:44)
[2024-07-13] MEDS: SERTRALINE 25 MG TAB PO SCH (19:44)
[2024-07-13] MEDS: diphenhydrAMINE 50 MG/ML 1 ML VIAL IVP PRN (21:00)
[2024-07-13] MEDS: LACTATED RINGERS 1,000 ML IV SCH (21:32)
[2024-07-14 06:50] LABS: Basophils % (A) 0 %; Eosinophils % (A) 0 %; HCT 30.6 % (34.0-46.0); HGB 9.8 gm/dL (11.4-16.0); Lymphocytes # (A) 1.4 k/uL (1.0-4.8); Lymphocytes % (A) 14 %; MCH 27.1 pg (25.0-35.0); MCV 84.7 fL (80.0-100.0); Mean Platelet Volume 12.2; Monocytes # (A) 0.4 k/uL (0-1.0); Monocytes % (A) 4 %; Neutrophils # (A) 7.8 k/uL (1.3-7.7); Neutrophils % (A) 81 %; Platelet Count 159 k/uL (150-450); RBC 3.61 m/uL (3.80-5.40); RDW 15.9 % (11.5-15.5); WBC 9.6 k/uL (3.8-10.6)
[2024-07-14] MEDS: FERROUS SULFATE 325 MG TAB PO SCH (08:29)
--- NOTE | 2024-07-14 09:01 | P.PNOBGPC ---
Subjective - Subjective Principal diagnosis: Postop day 1, repeat section Interval history: Patient is doing well postoperatively. She is ambulating and voiding without difficulty. She is tolerating a regular diet without nausea or vomiting. She states her pain is well-controlled. She denies concerns this morning. Patient reports: Reports appetite normal, Reports voiding normally, Reports pain well controlled, Reports ambulating normally : doing well Objective - Vital Signs Latest vital signs: Vital Signs Temp Pulse Resp BP Pulse Ox 07/14/24 06:21 18 07/14/24 05:00 18 98 07/14/24 02:58 18 07/14/24 02:56 98.7 F 74 18 110/68 98 07/14/24 01:00 18 98 07/13/24 23:00 99.1 F 70 18 115/70 98 07/13/24 21:00 18 96 07/13/24 19:00 98.1 F 76 18 95/58 07/13/24 17:49 95 07/13/24 17:00 95.6 F L 76 16 109/54 95 07/13/24 15:20 97.3 F L 85 14 117/55 97 07/13/24 15:00 97.4 F L 91 16 117/59 96 07/13/24 14:45 81 16 107/56 96 07/13/24 14:30 83 16 107/57 96 07/13/24 14:15 97.7 F 80 16 108/55 94 L 07/13/24 14:00 88 16 104/52 07/13/24 13:58 99 07/13/24 13:30 96.7 F L 82 16 104/55 97 07/13/24 13:15 96.8 F L 86 16 105/54 100 07/13/24 10:18 96.4 F L 83 16 114/63 Intake and Output 07/13/24 07/14/24 07/14/24 22:59 06:59 14:59 Output Total 1479 600 Balance -1479 -600 Output: Urine 950 600 Straight 250 Output, Quantitative 529 Blood Loss Other: Voiding Method Indwelling Catheter - Exam Extremities: Present: normal, edema Abdomen: Present: normal appearance, soft Incision: Present: normal, dry, intact Uterus: Present: normal, firm - Labs Labs: Abnormal Lab Results - Last 24 Hours (Table) 07/13/24 07/14/24 Range/Units 10:25 05:51 RBC 3.61 L (3.80-5.40) m/uL Hgb 10.9 L 9.8 L (11.4-16.0) gm/dL Hct 30.6 L (34.0-46.0) % RDW 16.0 H 15.9 H (11.5-15.5) % Neutrophils # 7.8 H (1.3-7.7) k/uL Assessment and Plan (1) History of section Current Visit: Yes Status: Acute Code(s): Z98.891 - HISTORY OF UTERINE SCAR FROM PREVIOUS SURGERY SNOMED Code(s): 590726042 (2) Polyhydramnios Current Visit: No Status: Acute Code(s): O40.9XX0 - POLYHYDRAMNIOS, UNSP TRIMESTER, NOT APPLICABLE OR UNSP SNOMED Code(s): 62483808 (3) Term Current Visit: No Status: Acute Code(s): Z34.90 - ENCNTR FOR SUPRVSN OF NORMAL , UNSP, UNSP TRIMESTER SNOMED Code(s): 28181414 (4) S/P section Current Visit: No Status: Acute Code(s): Z98.891 - HISTORY OF UTERINE SCAR FROM PREVIOUS SURGERY SNOMED Code(s): 724582541 Plan: Patient is doing well postoperatively. Will plan to continue routine postoperative care. Anticipate discharge home tomorrow.
--- NOTE | 2024-07-14 19:01 | P.PN ---
Progress Note - Text 07/14/24 1112am 34-year-old female status post with spinal Duramorph. Patient was seen and evaluated for postop pain control she has a VAS of 1 with no complaints of nausea vomiting and mild pruritus which should subside
[2024-07-15 00:42] VITALS: RESP 16
--- NOTE | 2024-07-15 08:31 | P.DS ---
Providers Date of admission: 07/13/24 09:54 Expected date of discharge: 07/15/24 Attending physician: Robyn Thompson Primary care physician: Robyn Thompson - Discharge Diagnosis(es) (1) History of section Current Visit: Yes Status: Acute (2) Polyhydramnios Current Visit: No Status: Acute (3) Term Current Visit: No Status: Acute (4) S/P section Current Visit: No Status: Acute Hospital Course: This is a 34-year-old 3 now para 3 that presented to labor and delivery on 07/13 for scheduled repeat section with bilateral salpingectomy. Patient has been receiving routine care which has been complicated by diagnosis of polyhydramnios. Patient has a prior history of shoulder dystocia therefore second was elected primary . For full details in this patient please the dictated history and physical. Patient was taken back to the operating suite where repeat section and bilateral salpingectomy was performed without difficulty. A viable male infant was delivered at 1247, weight of 8 pounds 6 ounces, Apgars of 8 and 9 at 1 and 5 minutes respectively. Patient has done well postoperatively. On this postoperative day #2 she is ambulating and voiding without difficulty. She is tolerating a regular diet without nausea or vomiting. She states her pain is well-controlled. She denies concerns and would like discharge home later today. Patient Condition at Discharge: Good Plan - Discharge Summary Discharge Rx Participant: Yes New Discharge Prescriptions: No Action [id number] Acid [-U Capsule (formulary)] 1 cap PO HS Sertraline [Zoloft] 25 mg PO HS Ferrous Sulfate [Feosol] 325 mg PO DAILY Fluticasone Nasal [place] [Flonase Nasal [place]] 1 spray EA NOSTRIL HS Cetirizine HCl [Zyrtec] 10 mg PO DAILY Cefdinir [Omnicef] 300 mg PO Q12HR Discharge Medication List [id number] Acid [-U Capsule (formulary)] 1 cap PO HS 11/09/22 [History] Sertraline [Zoloft] 25 mg PO HS 06/17/24 [History] Cefdinir [Omnicef] 300 mg PO Q12HR 07/11/24 [History] Cetirizine HCl [Zyrtec] 10 mg PO DAILY 07/11/24 [History] Ferrous Sulfate [Feosol] 325 mg PO DAILY 07/11/24 [History] Fluticasone Nasal [place] [Flonase Nasal [place]] 1 spray EA NOSTRIL HS 07/11/24 [History] Follow up Appointment(s)/Referral(s): Robyn Thompson DO [Primary Care Provider] - 2 Weeks Patient Instructions/Handouts: (DC), (GEN) Activity/Diet/Wound Care/Special Instructions: No tub baths or intercourse until 6 weeks post . [id number] ibuprofen 600 mg or 3 tablets every 6 hours as needed for pain. Patient is to follow-up in the office in 2 weeks for routine incision check. Should she have any concerns prior this appointment she is urged to call the office. Discharge Disposition: HOME SELF-CARE
[2024-07-15 08:50] VITALS: BP 117/72; PULSE 71; TEMP 97.4
== END 2024-07-15 10:28 | disposition home or self-care (01) | DRG 539 ==
LOC: 4FBP 09:54
PROVIDERS: ADMIT Obstetrics & Gynecology Obstetrics; ATTEND Obstetrics & Gynecology Obstetrics
PROC: 0UB70ZZ Excision of Bilateral Fallopian Tubes, Open Approach (ICD-10-PCS; principal; 2024-07-13 12:00)
PROC: 10D00Z1 Extraction of Products of Conception, Low, Open Approach (ICD-10-PCS; principal; 2024-07-13 12:00)
DX: O34.211 Maternal care for low transverse scar from previous cesarean delivery (principal); O40.3XX0 Polyhydramnios, third trimester, not applicable or unspecified; Z30.2 Encounter for sterilization; O99.344 Other mental disorders complicating childbirth; F41.9 Anxiety disorder, unspecified; Z37.0 Single live birth; Z3A.37 37 weeks gestation of pregnancy; O99.73 Diseases of the skin and subcutaneous tissue complicating the puerperium; L29.9 Pruritus, unspecified; Z79.899 Other long term (current) drug therapy; H66.90 Otitis media, unspecified, unspecified ear; Z86.14 Personal history of Methicillin resistant Staphylococcus aureus infection; Z87.440 Personal history of urinary (tract) infections; Z88.0 Allergy status to penicillin
CPT/HCPCS: 85025; 86850; 86900; 86901